=== PATIENT | female | born 1965 | race Caucasian/White ===

== ENCOUNTER 2018-05-16 02:23 | Outpatient (CLI) | payer OTHER, SELFPAY ==
--- NOTE | 2018-06-07 18:41 | ZIOP_ITS ---
ZIO PATCH REPORT DATE OF READING: June 07, 2018 STUDY INDICATION: Palpitations. REQUESTING PROVIDER: Zuly Shore M.D. FINDINGS: The patient was monitored for 13 days and 1 hour. The predominant underlying rhythm was sinus rhythm. Average heart rate in sinus rhythm 73 beats per minute, range of 46-152 beats per minute. There was rare ectopy. There were four atrial runs, average heart rate 129 beats per minute, range 58-176 beats per minute. The longest episode lasted 18 beats with an average heart rate of 96 beats per minute. There were no pauses greater than 3 seconds. There was no high-degree heart block. There were 22 patient events. Five events correlated with PACs. One event correlated with PVCs. One episode correlated with a 7-beat atrial run with an average heart rate of 150 beats per minute. FINAL INTERPRETATION: Bursts of atrial tachycardia, at times symptomatic.
== END 2018-05-16 02:43 ==
PROVIDERS: PCP Family Medicine; Visit Provider Internal Medicine Cardiovascular Disease
DX: R00.2 Palpitations (principal); I47.1 Supraventricular tachycardia
CPT/HCPCS: 93225

== ENCOUNTER 2018-06-16 01:22 | Outpatient (CLI) | payer OTHER, SELFPAY ==
--- NOTE | 2018-06-16 09:28 | DI.MAMMO_ITS ---
SYMPTOM/DIAGNOSIS: SCREENING, PT HAS IMPLANTS MAMMOGRAM: 06/16/18 Mammograms were interpreted according to the usual protocol including computer analysis with CAD system, tomosynthesis and C view imaging. The breasts are of moderate density. There are bilateral mammary implants. Routine views and implant displaced views were obtained. No mass or clumped microcalcification identified in either breast. The current examination is compared with previous examinations including 11/2016 and there has been no gross interval change in appearance in comparison with the previous studies. CONCLUSION: No specific evidence of malignancy at this time. Routine screening examinations are suggested at yearly intervals in this age group according to the ACS/ACR guidelines. Category 1, breast density category B. MQSA ASSESSMENT OF FINDINGS: Negative. Category 1. Patient will receive a letter notifying them of these results. BI-RADS category B. There are scattered areas of fibroglandular density.
== END 2018-06-16 01:42 ==
PROVIDERS: PCP Family Medicine; Visit Provider Obstetrics & Gynecology Gynecology
DX: Z12.31 Encounter for screening mammogram for malignant neoplasm of breast (principal); Z98.82 Breast implant status
CPT/HCPCS: 77063; 77067

== ENCOUNTER 2018-07-30 00:18 | Outpatient (CLI) | payer OTHER, SELFPAY ==
[2018-07-30 09:57] LABS: Abs Immature Grans 0.01 k/cumm (0.0-0.09); Absolute Basophil Count 0.03 k/cumm (0.0-0.2); Absolute Eosinophil Count 0.19 k/cumm (0.0-0.7); Absolute Lymphocyte Count 1.57 k/cumm (1.2-3.4); Absolute Monocyte Count 0.36 k/cumm (0.11-0.7); Absolute Neutrophil Count 2.65 k/cumm (1.2-6.7); Basophils % 0.6; HCT 38.9 % (36.0-46.0); HGB 12.9 g/dL (12.0-15.5); Immature Grans % 0.2; Lymphocytes % 32.6; Mean Corp. HGB Concentration 33.2 g/dL (32.0-36.0); Mean Corpuscular Hemoglobin 28.8 pg (27.0-33.0); Mean Corpuscular Volume 86.8 fL (80-95); Mean Platelet Volume 9.6 fL (8.0-11.0); Monocytes % 7.5; Neutrophils % 55.1; Platelet Count 269 x1000/uL (130-400); RBC 4.48 m/cumm (4.00-5.20); RBC Distribution Width 12.6 % (11.7-14.6); White Blood Cell Count 4.81 k/cumm (4.4-10.8)
[2018-07-30 11:38] LABS: Anion Gap 5.9 mmol/L (3-11); BUN 22 mg/dL (7-18); CO2 30.1 mmol/L (21.0-32.0); CREATININE 0.78 mg/dL (0.55-1.02); Calcium 9.3 mg/dL (8.5-10.1); Chloride 105 mmol/L (98-107); Cholesterol 227 mg/dL (50-200); Glucose 91 mg/dL (70-100); HDL Cholesterol 61 mg/dL (40-60); LDL CHOLESTEROL 149 mg/dL (<100); Potassium 4.2 mmol/L (3.5-5.1); Sodium 141 mmol/L (136-145); TSH (W/Ref FT4) 2.63 uIU/mL (0.358-3.74); Triglyceride 61 mg/dL (30-150); Vitamin B12 743 pg/mL (193-986)
[2018-07-30 11:40] LABS: Folate > 20.0 ng/mL (8.6-20.0)
== END 2018-07-30 00:38 ==
PROVIDERS: PCP Family Medicine; Visit Provider Family Medicine
DX: E53.8 Deficiency of other specified B group vitamins (principal); I10 Essential (primary) hypertension; Z00.00 Encounter for general adult medical examination without abnormal findings; R94.6 Abnormal results of thyroid function studies
CPT/HCPCS: 36415; 80048; 80061; 83721; 82607; 82746; 84443; 85025

== ENCOUNTER 2018-10-06 00:09 | Outpatient (CLI) | payer OTHER, SELFPAY ==
--- NOTE | 2018-10-06 08:30 | ETT_ITS ---
*[facility]* *[facility]* [address] [place] [address] Stress Electrocardiography Sheldon protocol Date of study: 10/06/2018 *PATIENT PRESENTATION* Height: 160cm (63in) Blood Pressure: Weight: 65kg (143lb) BSA: 1.71m^2 Referring physician: Jason Simmons Ordering physician: Jason Simmons Impressions: Borderline study, very transient ST depressions without angina, but concomitant nausea. Summary: 1. Stress ECG conclusions: The stress ECG is borderline. The sensitivity of this test is limited by significant motion artifact. Maximal ST change occurred during the exercise phase. Stress ECG change: Transient horizontal depression starting at 6min exercise, onset of nausea around 9min, horizontal ST depression resolving with higher level of exercise around 10min exercise. Severity: 1.0-1.5mm. 2. Stress: The target heart rate was achieved. There is a normal resting blood pressure with an appropriate response to stress. The patient experienced no chest pain during stress. Exercise capacity is above normal for age. Recommendations: Cardiology consult. Indication: R00.2. History: REASON FOR TESTING: PATIENT HAS HAD PALPITATIONS FOR MANY YEARS, BUT OVER THE LAST YEAR THE PALPITATIONS HAVE BECOME MORE FREQUENT. SHE REPORTS GETTING A FLUTTERING LEFT SIDED CHEST SENSATION AN AVERAGE OF 5 TIMES PER DAY; THESE EPISODES LAST ANYWHERE FROM TWO SECONDS TO 1 MINUTE. SHE STATES SHE RARELY GETS LIGHTHEADEDNESS. SHE DENIES PALPITATIONS UPON ARRIVAL TO TESTING TODAY. SIGNIFICANT PAST MEDICAL HISTORY: PALPITATIONS. SMOKING STATUS: NEVER. EXERCISE ROUTINE: ELLIPTICAL 4-5 TIMES PER WEEK FOR 30 MINUTES, AND DAILY ADL'S. Risk factors: Family history of coronary artery disease. Hypertension. Dyslipidemia. Cholesterol: 227mg/dl. HDL: 61mg/dl. LDL: 149mg/dl. Triglycerides: 61mg/dl. ALLERGIES: AMITRIPTYLINE, CLONAZEPAM, SULFA, STEROIDS. MEDICATIONS: VITAMIN D 1000 UNITS DAILY, PEDIATRIC MULTIVITAMIN DAILY, CHINO C 500 MG DAILY, OMEPRAZOLE 20 MG DAILY, ATENOLOL 50 MG DAILY. Protocol: Sheldon protocol. Baseline ECG: SINUS BRADYCARDIA. HR 57 BPM. Stress protocol: + +---+ + !Stage !HR !BP (mmHg) ! + +---+ + !Baseline supine !57 !140/90 (107)! + +---+ + !Baseline standing !62 !138/88 (105)! + +---+ + !Stage I; 1.7mph, 10degrees; 3 min !98 !140/80 (100)! + +---+ + !Stage II; 2.5mph, 12degrees; 3 min !99 !140/80 (100)! + +---+ + !Stage III; 3.4mph, 14degrees; 3 min!143!170/80 (110)! + +---+ + !Recovery; 1 min !110!190/78 (115)! + +---+ + !Recovery; 3 min !87 !126/76 (93) ! + +---+ + !Recovery; 6 min !83 !120/76 (91) ! + +---+ + !Recovery; 12 min !81 !112/70 (84) ! + +---+ + * Stress results: STRESS TEST ENDED IN 11 MINUTES 5 SECONDS DUE TO NAUSEA. NAUSEA SUBSIDED BY 3 MINUTE RECOVERY PERIOD. NORMAL HEART RATE AND BLOOD PRESSURE RESPONSE TO EXERCISE. MAX HEART RATE: 154 91 % OF TARGET HEART RATE ACHIEVED. MET'S: 13.[address] NO ANGINA. [address] SEGMENT DEPRESSIONS IN V3, V4, V5, V6 AT 6 MINUTES [address] SEGMENTS IN V3, V4, V5, VS RETURN TO BASELINE UPON IMMEDIATE RECOVERY. ABOVE AVERAGE FUNCTIONAL CAPACITY. Maximal heart rate during stress was 154bpm (92% of maximal predicted heart rate). The maximal predicted heart rate was 168bpm. The target heart rate was achieved. There is a normal resting blood pressure with an appropriate response to stress. The rate-pressure product for the peak heart rate and blood pressure was 14960pq Hg/min. The patient experienced no chest pain during stress. Exercise capacity is above normal for age. Stress ECG: The stress ECG is borderline. The sensitivity of this test is limited by significant motion artifact. Maximal ST change occurred during the exercise phase. Stress ECG change: Transient horizontal depression starting at 6min exercise, onset of nausea around 9min, horizontal ST depression resolving with higher level of exercise around 10min exercise. Severity: 1.0-1.5mm. In lead groups: V3, V4, V5 and V6. Study data: Zuly Shore MD supervised and was readily available during the procedure. This study was interpreted by [facility]. Study status: Routine. Consent: The risks, benefits, and alternatives to the procedure were explained to the patient and informed consent was obtained. Procedure: Initial setup. A baseline ECG was recorded. Surface ECG leads and manual cuff blood pressure measurements were monitored. Heart sounds: Normal. Lung sounds: Normal. Treadmill exercise testing was performed using the Sheldon protocol. Study completion: The patient tolerated the procedure well and was discharged from the lab. Discharge: The patient left the laboratory in stable condition. Birthdate: Patient birthdate: 1965. Sex: Gender: female. Study date: Study date: 10/06/2018. Study time: 00:01 AM. Signature Documentation: The Stress ECG portion of this study was interpreted by Zuly Shore MD. Electronically signed by Zuly Shore 10/06/2018 16:37
== END 2018-10-06 00:29 ==
PROVIDERS: PCP Family Medicine; Visit Provider Internal Medicine Cardiovascular Disease
DX: R00.2 Palpitations (principal); R07.89 Other chest pain; R06.9 Unspecified abnormalities of breathing; I47.1 Supraventricular tachycardia; I10 Essential (primary) hypertension; E78.5 Hyperlipidemia, unspecified; R94.30 Abnormal result of cardiovascular function study, unspecified
CPT/HCPCS: 93017

== ENCOUNTER 2019-01-26 00:06 | Outpatient (CLI) | payer OTHER, SELFPAY ==
--- NOTE | 2019-01-26 08:15 | MERGEMPI_ITS ---
*[facility]* *[facility]* [address] [place] [address] Myocardial Perfusion Imaging - SPECT Sheldon protocol Date of study: 01/26/2019 *PATIENT PRESENTATION* Height: 160cm (63in) Blood Pressure: Weight: 63.6kg (140lb) BSA: 1.69m^2 Referring physician: Mikal Gonzalez Ordering physician: Ruben Gerard Impressions: Normal study after maximal exercise. Summary: 1. Myocardial perfusion imaging: No myocardial perfusion defects noted. 2. The calculated left ventricular ejection fraction after stress: 59%. LV global systolic function is normal. No left ventricular regional motion abnormality. 3. Stress ECG conclusions: The stress ECG is negative. Del Real treadmill score: 8. This score predicts a low risk of cardiac events. 4. Stress: The target heart rate was achieved. There is a normal resting blood pressure with an appropriate response to stress. The patient experienced no chest pain during stress. Exercise capacity is average for age. 5. Treadmill exercise testing was performed using the Sheldon protocol. The patient exercised for 8 min 8 sec, to protocol stage 3, to a maximal work rate of 10.2mets. Exercise was terminated due to achievement of target heart rate. Indication: R00.2. History: REASON FOR TESTING: PATIENT REPORTS INCREASED FREQUENCY OF PALPITATIONS, A FLUTTERING SENSATION TO THE LEFT CHEST. ETT DONE 10/06/18 WAS BODERLINE, LIMITED BY MOTION ARTIFACT. SEE REPORT. PMH: PALPITATIONS, HYPERLIPIDEMIA, HYPERTENSION, PAROXYSMAL ATRIAL TACHYCARDIA, IBS, GASTRITIS, DYSPEPSIA, LOW BACK PAIN, RHEUMATOID FACTOR POSITIVE, DUB, FATIGUE, FIBROMYALGIA, MITRAL VALVE PROLAPSE, MAJOR DEPRESSIVE DISORDER, PRESYNCOPE. FAMILY HX: CAD, HYPERTENSION. SMOKING: NEVER SMOKER. 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 Risk factors: Family history of coronary artery disease. Hypertension. Dyslipidemia. Cholesterol: 227mg/dl. HDL: 61mg/dl. LDL: 149mg/dl. Triglycerides: 61mg/dl. ALLERGIES:SULFA, AMITRIPTYLINE, STEROIDS,CLONOPIN. MEDICATIONS: PEDIATRIC MULTIVITAMIN 1 DAILY, OMEPRAZOLE 20 MG DAILY, ATENOLOL 25 MG DAILY, CHINO-C 500 MG DAILY, VIT D3 1000 UNITS DAILY, TUMERIC/CURCUMIN 1 DAILY. Imaging Technique: Protocol: Sheldon protocol. Acquisition: Gated SPECT; 1 day - rest/stress. The patient was imaged in the supine position. Attenuation correction used. Isotope administration: - Rest. Tc[99m]-sestamibi. Dose: 10.3mCi. Injection time: 08:15 AM. Injection to stress time: 00:45. - Stress. Tc[99m]-sestamibi. Dose: 31mCi. Injection time: 10:55 AM. 1-2 min before end of exercise Baseline ECG: LAST EKG 05/23/2013- SINUS RHYTHM, SHORT GA SYNDROME. TODAY'S EKG- SINUS RHYTHM, HR 74. Normal ECG. Stress protocol: + +---+ +---+ !Stage !HR !BP (mmHg) !Sat! + +---+ +---+ !Baseline supine !74 !136/80 (99) !---! + +---+ +---+ !Baseline standing !85 !140/82 (101)!99%! + +---+ +---+ !Stage I; 1.7mph, 10degrees; 3 min !122!160/78 (105)!---! + +---+ +---+ !Stage II; 2.5mph, 12degrees; 3 min!148!168/90 (116)!99%! + +---+ +---+ !Recovery; 1 min !169!170/68 (102)!---! + +---+ +---+ !Recovery; 3 min !86 !150/70 (97) !---! + +---+ +---+ !Recovery; 6 min !80 !136/80 (99) !---! + +---+ +---+ * Stress results: Maximal heart rate during stress was 169bpm (101% of maximal predicted heart rate). The maximal predicted heart rate was 168bpm. The target heart rate was achieved. There is a normal resting blood pressure with an appropriate response to stress. The rate-pressure product for the peak heart rate and blood pressure was 05062bp Hg/min. The patient experienced no chest pain during stress. Exercise capacity is average for age. Stress ECG: EXCERCISE TESTING ENDED IN 8 MINS, 08 SECS. MAX HR WAS 169, 100% OF TARGET. HYPERTENSIVE BLOOD PRESSURE RESPONSE. METS: 10.16. ECTOPY: NONE SEEN. ANGINA: NO REPORTED CHEST PAIN, PRESSURE OR PALPITATIONS REPORTED. ISCHEMIA: NO ISCHEMIC CHANGES NOTED. FUNCTIONAL CAPACITY: AVERAGE CAPACITY. The stress ECG is negative. Del Real treadmill score: 8. This score predicts a low risk of cardiac events. Myocardial perfusion: Imaging information: gated. The image quality was good. Image quality reduced due to subdiaphragmatic activity. Left ventricular size is normal. No myocardial perfusion defects noted. Ventricular Function (Wall Motion): The calculated left ventricular ejection fraction after stress: 59%. LV global systolic function is normal. No left ventricular regional motion abnormality. Study data: Mikal Gonzalez MD supervised and was readily available during the procedure. This study was interpreted by [facility]. Study status: Routine. Consent: The risks, benefits, and alternatives to the procedure were explained to the patient and informed consent was obtained. Procedure: Initial setup. A baseline ECG was recorded. Surface ECG leads and manual cuff blood pressure measurements were monitored. Heart sounds: Normal. Lung sounds: Normal. Treadmill exercise testing was performed using the Sheldon protocol. The patient exercised for 8 min 8 sec, to protocol stage 3, to a maximal work rate of 10.2mets. Exercise was terminated due to achievement of target heart rate. Study completion: All catheters inserted during the procedure were removed. The patient tolerated the procedure well and was discharged from the lab. Discharge: The patient left the laboratory in stable condition. Birthdate: Patient birthdate: 1965. Sex: Gender: female. Study date: Study date: 01/26/2019. Study time: 00:01 AM. Signature Documentation: - The imaging portion of this study was interpreted by Nuclear Anesthesia Director Mikal Gonzalez MD. - The Stress ECG portion of this study was interpreted by Mikal Gonzalez MD. Electronically signed by Mikal Gonzalez 01/26/2019 12:49
== END 2019-01-26 00:26 ==
PROVIDERS: PCP Family Medicine; Visit Provider Family Medicine
DX: R00.2 Palpitations (principal); R94.30 Abnormal result of cardiovascular function study, unspecified; I10 Essential (primary) hypertension; I47.1 Supraventricular tachycardia; E78.5 Hyperlipidemia, unspecified; Z82.49 Family history of ischemic heart disease and other diseases of the circulatory system
CPT/HCPCS: 78452; 93017

== ENCOUNTER 2019-05-24 11:29 | Outpatient (CLI) | payer OTHER, SELFPAY ==
--- NOTE | 2019-05-24 11:24 | DI.RAD_ITS ---
EXAM: XR HIP RT COMPLETE AP PELVIS CLINICAL HISTORY: HIP PAIN TECHNIQUE: The study was performed according to the usual protocol. COMPARISON: BILATERAL HIPS ADULT from 10/30/2009 LUMBAR SPINE COMPLETE from 04/17/2010 FINDINGS: Two views were obtained. There is sclerotic focus in the right iliac measuring about 11 millimeters in diameter which lies superior to the acetabulum. This was not present on prior examination of 2009 . This may represent a bone island but the possibility of a sclerotic metastatic lesion is not exclu ded. There is slight narrowing of the cartilaginous joint spaces of both hips superiorly. Mild subchondra l sclerosis of the acetabula noted bilaterally. Mild acetabular spurring noted bilaterally. IMPRESSION: Mild DJD of both hips. Sclerotic radiodensity which appears to lie in the right iliac bone may repres ent bone island but was not present on the previous examination and neoplastic lesion is not excluded . MR examination of the pelvis is suggested for further evaluation to include pre and post contrast i maging.
== END 2019-05-24 11:49 ==
PROVIDERS: PCP Family Medicine; Visit Provider Student in an Organized Health Care Education/Training Program
DX: M25.551 Pain in right hip (principal); M16.0 Bilateral primary osteoarthritis of hip; M89.8X8 Other specified disorders of bone, other site
CPT/HCPCS: 73502

== ENCOUNTER 2019-08-11 07:40 | Outpatient (CLI) | payer OTHER, SELFPAY ==
--- NOTE | 2019-09-04 09:23 | ZIOP_ITS ---
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 Predominant rhythm was sinus. Average heart rate was 68 bpm. Minimum heart rate was 45 and maximum 149 There were very rare ventricular ectopic beats There were very rare premature atrial contractions. There were 8 runs of premature atrial contractions, the longest was 6 beats. Patient symptoms correlated to both sinus rhythm and atrial runs
== END 2019-08-11 08:00 ==
PROVIDERS: PCP Family Medicine; Visit Provider Internal Medicine Cardiovascular Disease
DX: R00.2 Palpitations (principal); I49.3 Ventricular premature depolarization
CPT/HCPCS: 0296T

== ENCOUNTER 2019-10-05 00:31 | Outpatient (CLI) | payer OTHER, SELFPAY ==
--- NOTE | 2019-10-05 14:20 | DI.MAMMO_ITS ---
EXAM: MG MAMMO SCREENING 60 MIN DUR CLINICAL HISTORY: BREAST CANCER SCREENING, Z12.39, PT HAS IMPLANTS TECHNIQUE: Mammograms were interpreted according to the usual protocol including computer analysis w Yap CAD system, tomosynthesis and C-view imaging. COMPARISON: Previous examination May 2018 FINDINGS: Breasts are of moderate density and contain implants. Routine views and implant-displaced views were obtained. No mass or clumped microcalcification identified in either breast. No gross interval william nge in appearance in comparison with previous examination May 2018. IMPRESSION: No specific evidence of malignancy at this time. Routine screening examinations are suggested at yea rly intervals in this age group according to the ACS/ACR guidelines. Category 1, breast density susan Briggs
== END 2019-10-05 00:51 ==
PROVIDERS: PCP Family Medicine; Visit Provider Obstetrics & Gynecology Gynecology
DX: Z12.31 Encounter for screening mammogram for malignant neoplasm of breast (principal); Z98.82 Breast implant status
CPT/HCPCS: 77063; 77067

== ENCOUNTER 2020-02-22 02:20 | Outpatient (CLI) | payer OTHER, SELFPAY ==
[2020-02-22 08:36] LABS: Calculated LDL 176 mg/dL (<100); Cholesterol 248 mg/dL (<200); HDL Cholesterol 54 mg/dL (40-60); Triglyceride 92 mg/dL (<150)
== END 2020-02-22 02:40 ==
PROVIDERS: PCP Family Medicine; Visit Provider Physician Assistant
DX: Z13.220 Encounter for screening for lipoid disorders (principal)
CPT/HCPCS: 36415; 80061

== ENCOUNTER 2020-03-29 03:53 | Outpatient (REF) | payer OTHER, SELFPAY ==
[2020-03-31 23:06] LABS: Patient Race White; SARS-CoV-2 RNA Undetected (Undetected); SARS-CoV-2 Specimen Source Nasal
== END 2020-03-29 04:13 ==
LOC: LBO 03:53
PROVIDERS: PCP Family Medicine; Visit Provider Nurse Practitioner Family
DX: Z11.59 Encounter for screening for other viral diseases (principal)
CPT/HCPCS: U0003

== ENCOUNTER 2020-05-16 11:01 | Outpatient (CLI) | payer OTHER, SELFPAY ==
--- NOTE | 2020-05-16 14:59 | DI.RAD_ITS ---
EXAM: XR KNEE LT 3V AP,LAT,AKASH CLINICAL HISTORY: s/p fall 05/03/20 - full weight on left knee, pain,m25.562 TECHNIQUE: COMPARISON: No exams were available for comparison FINDINGS: Three views were obtained. No bony abnormality is seen. Cartilaginous joint spaces appear fairly we ll maintained. No knee joint effusion seen. IMPRESSION: Negative examination of the knee. RADIATION DOSE DELIVERED: Total DLP
== END 2020-05-16 11:21 ==
PROVIDERS: PCP Family Medicine; Visit Provider Nurse Practitioner Family
DX: M25.562 Pain in left knee (principal)
CPT/HCPCS: 73562

== ENCOUNTER 2020-07-02 09:07 | Outpatient (CLI) | payer OTHER, SELFPAY ==
--- NOTE | 2020-07-02 09:00 | DI.RAD_ITS ---
EXAM: XR KNEE RT 3V AP,LAT,AKASH CLINICAL HISTORY: RIGHT KNEE PAIN. TECHNIQUE: 2D digital imaging was performed. COMPARISON: CR XR KNEE LT 3V AP,LAT,AKASH from 05/16/2020 FINDINGS: BONES: No acute fracture is present. No bony destructive lesion is seen. There is a tiny enthesophyte at the anterior superior aspect of the patella. JOINTS: The knee is normally aligned. No joint effusion is seen. There is normal alignment of the pat mary carmen. SOFT TISSUE: Normal. IMPRESSION: Unremarkable radiographs of the right knee. DATA REPOSITORY: RADIATION DOSE DELIVERED:
== END 2020-07-02 09:27 ==
PROVIDERS: PCP Family Medicine; Visit Provider Student in an Organized Health Care Education/Training Program
DX: M25.561 Pain in right knee (principal)
CPT/HCPCS: 73562

== ENCOUNTER 2020-09-10 01:21 | Outpatient (CLI) | payer OTHER, SELFPAY ==
--- NOTE | 2020-09-10 12:45 | DI.RAD_ITS ---
EXAM: XR ARTHRITIS SERIES CLINICAL HISTORY: Painful DIPs of fingers bilaterally,ARTHRALGIA, M25.50 TECHNIQUE: 2D digital imaging was performed. COMPARISON: CR none FINDINGS: There is a fracture of the tuft of the 5th finger of the left hand. No additional fractures are see n. There is mild spurring from distal interphalangeal joints of the 2nd and 3rd fingers of the right hand. Minimal spurring is seen of the interphalangeal joints of the left hand. No bony erosions ar e seen. The bones are normally mineralized. IMPRESSION: Mild degenerative changes of the interphalangeal joints, greater distally in the right hand. Fractur e of indeterminate age of the tuft of the 5th finger of the left hand.
== END 2020-09-10 01:22 ==
LOC: DI 01:22
PROVIDERS: PCP Nurse Practitioner Family; Visit Provider Nurse Practitioner Family
DX: M25.541 Pain in joints of right hand (principal); M25.542 Pain in joints of left hand; M19.041 Primary osteoarthritis, right hand; M19.042 Primary osteoarthritis, left hand
CPT/HCPCS: 73120

== ENCOUNTER 2020-09-18 01:08 | Outpatient (CLI) | payer OTHER, SELFPAY ==
--- NOTE | 2020-09-18 06:45 | DI.MRI_ITS ---
EXAM: MR LOWER JOINT LT WO CLINICAL HISTORY: Failed nonop,INTERNAL DERANGEMENT,LT KNEE PAIN,M23.92. TECHNIQUE: Multiplanar multisequence MRI was performed. COMPARISON: No exams were available for comparison FINDINGS: BONES: There is no fracture or contusion pattern. JOINTS: There is a focus of hyperintense signal in the articular cartilage overlying the lateral sanchez llar facet the underlying bone shows normal marrow signal. No effusion is present. TENDONS: Extensor mechanism: Unremarkable. Medial retinaculum: Unremarkable. Lateral retinaculum: Unremarkable. Popliteus: Unremarkable. MUSCLES: Unremarkable. MENISCI: There is degenerative signal seen in the medial meniscus but no evidence of a nara tear. T he lateral meniscus is unremarkable. SOFT TISSUES: Unremarkable. LIGAMENTS: Anterior Cruciate: Unremarkable. Posterior Cruciate: Unremarkable. Medial Collateral:There is a mild amount of fluid around the medial collateral ligament which may rep resent a mild sprain. Lateral Collateral: Unremarkable. OTHER: IMPRESSION: 1. No evidence of a meniscal or ligament tear. 2. Findings suggestive of a mild sprain of the MCL. 3. Degenerative signal seen in the medial meniscus without evidence of a nara tear. 4. Chondromalacia of the lateral patellar facet. DATA REPOSITORY:
== END 2020-09-18 01:28 ==
PROVIDERS: PCP Nurse Practitioner Family; Visit Provider Student in an Organized Health Care Education/Training Program
DX: M23.92 Unspecified internal derangement of left knee (principal); M22.42 Chondromalacia patellae, left knee
CPT/HCPCS: 73721

== ENCOUNTER 2020-09-27 02:18 | Outpatient (CLI) | payer OTHER, SELFPAY ==
[2020-09-27 07:22] LABS: Abs Immature Grans 0.01 10^3/uL (0.0-0.06); Absolute Basophil Count 0.06 10^3/uL (0.0-0.2); Absolute Eosinophil Count 0.12 10^3/uL (0.0-0.7); Absolute Lymphocyte Count 1.53 10^3/uL (1.2-3.4); Absolute Monocyte Count 0.34 10^3/uL (0.1-0.8); Absolute Neutrophil Count 1.88 10^3/uL (1.2-6.7); Basophils % 1.5; HCT 38.7 % (36.0-46.0); HGB 12.8 g/dL (11.2-15.7); Immature Grans % 0.3; Lymphocytes % 38.8; MCH 28.6 pg (27.0-33.0); MCHC 33.1 % (32.0-36.0); MCV 86.4 fL (80-95); MPV 10.2 fL (8.0-11.0); Monocytes % 8.6; Neutrophils % 47.8; Nucleated RBC 0 %; Platelet Count 259 10^3/uL (130-400); RBC 4.48 10^6/uL (3.93-5.22); RDW 12.1 % (11.7-14.6); RDW-SD 38.5 fL; WBC 3.94 10^3/uL (4.4-10.8)
[2020-09-27 07:30] LABS: Hemoglobin A1C 5.5 % (<5.7)
[2020-09-27 08:15] LABS: ALT 39 U/L (14-59); AST 22 U/L (15-37); Albumin 4.2 g/dL (3.4-5.0); Alkaline Phosphatase 78 U/L (46-116); Anion Gap 7.3 mmol/L (3-11); BUN 27 mg/dL (7-18); Bilirubin, Total 0.5 mg/dL (0.2-1.0); CO2 29.7 mmol/L (21.0-32.0); CREATININE 0.9 mg/dL (0.55-1.02); Calcium 9.4 mg/dL (8.5-10.1); Calculated LDL 154 mg/dL (<100); Chloride 105 mmol/L (98-107); Cholesterol 235 mg/dL (<200); Glucose 98 mg/dL (74-106); HDL Cholesterol 66 mg/dL (40-60); Potassium 4.1 mmol/L (3.5-5.1); Sodium 142 mmol/L (136-145); TSH (W/Ref FT4) 2.58 uIU/mL (0.36-3.74); Total Protein 7.2 g/dL (6.4-8.2); Triglyceride 75 mg/dL (<150)
[2020-09-27 08:41] LABS: C-Reactive Protein < 0.05 mg/dL (0.0-0.3)
[2020-09-27 16:20] LABS: ESR 3 mm/hr (<or=30)
[2020-09-27 17:08] LABS: Rheumatoid Factor 32.9 IU/mL (<12.0)
[2020-09-30 05:13] LABS: Vitamin D 25 Total 43.2 ng/ml (30-100)
[2020-09-30 13:52] LABS: Lyme Ab w Rflx to Lyme Confirm Negative (Negative)
[2020-09-30 15:29] LABS: ANA Interpretation Positive (Negative); ANA Titer Pattern 1:80 Speckled
== END 2020-09-27 02:19 | disposition home or self-care (01) ==
LOC: LBO 02:18
PROVIDERS: PCP Nurse Practitioner Family; Visit Provider Nurse Practitioner Family
DX: M25.59 Pain in other specified joint (principal); M79.18 Myalgia, other site; Z00.00 Encounter for general adult medical examination without abnormal findings; I10 Essential (primary) hypertension; F41.8 Other specified anxiety disorders; R00.2 Palpitations
CPT/HCPCS: 36415; 80053; 80061; 82306; 85652; 83036; 84443; 85025; 86038; 86140; 86431; 86618

== ENCOUNTER 2020-10-10 01:56 | Outpatient (CLI) | payer OTHER, SELFPAY ==
--- NOTE | 2020-10-10 10:45 | DI.MAMMO_ITS ---
EXAM: MG MAMMO SCREENING 60 MIN DUR CLINICAL HISTORY: breast cancer screening,IMPLANTS, Z12.39. TECHNIQUE: Bilateral full field digital CC and MLO mammographic images were obtained with 3D tomosyn thesis and utilizing computer aided detection (CAD). Performed conventional and implant displacement views. COMPARISON: Prior mammograms dating back to 2010, the most recent being September 2019. FINDINGS: Implants are retropectora retropectoral. There are no new spiculated masses nor malignant appearing microcalcification groups. There is no significant architectural distortion nor skin thickening-retraction. IMPRESSION: Intact bilateral retropectoral implants. No radiographic evidence of malignancy. BI-RADS Category 1 - Negative Breast Density - Category B - Scattered areas of fibroglandular density Breast density Category C or D implies that the patient has dense breast tissue. Dense breast tissue can make it harder to find cancer on a mammogram. Dense breast tissue is also associated with an incr eased risk of breast cancer. This information about the result of the mammogram report was provided to the patient to raise their awareness. Use this report when you speak with the patient about their risks for breast cancer, which includes their family history. At that time, you may recommend additional screening tests (Ultrasoun d or MRI) as these tests may add significant information. A negative radiographic report should not delay biopsy if a dominant or clinically suspicious mass is present. Up to ten percent of cancers are not identified on mammography. A negative report may reinforce clinical impression. Adenosis and dense breasts may obscure an underlying neoplasm. False positive reports average 6 to 10%. Patient will receive a letter notifying them of these results.
== END 2020-10-10 02:16 ==
PROVIDERS: PCP Nurse Practitioner Family; Visit Provider Nurse Practitioner Family
DX: Z12.31 Encounter for screening mammogram for malignant neoplasm of breast (principal); Z98.82 Breast implant status
CPT/HCPCS: 77063; 77067

== ENCOUNTER 2020-11-26 15:22 | Outpatient (CLI) | payer OTHER, SELFPAY ==
--- NOTE | 2020-11-26 15:00 | DI.RAD_ITS ---
Exam(s) XR KNEE RT 3V AP,LAT,AKASH XR KNEE LT 2V AP,LAT XR KNEE LT 1V EXAM: XR KNEE LT 2V AP,LAT CLINICAL HISTORY: f/u TECHNIQUE: COMPARISON: CR XR KNEE RT 3V AP,LAT,AKASH from 07/02/2020 CR XR KNEE RT 3V AP,LAT,AKASH from 11/26/2020 FINDINGS: Bilateral Merchant views and AP and lateral views of each knee were obtained. Merchant view show nor rick aligned patellas. Cartilaginous joint spaces are well maintained bilaterally. No knee fusion on either side. No bony abnormality seen. IMPRESSION: Negative examination of both knees. RADIATION DOSE DELIVERED: Total DLP
== END 2020-11-26 15:23 | disposition home or self-care (01) ==
PROVIDERS: PCP Nurse Practitioner Family; Referring Provider Nurse Practitioner Family; Visit Provider Student in an Organized Health Care Education/Training Program
DX: M25.561 Pain in right knee (principal); M25.562 Pain in left knee
CPT/HCPCS: 73562; 73560

== ENCOUNTER 2021-03-21 11:12 | Outpatient (CLI) | payer OTHER, SELFPAY ==
[2021-03-21 17:24] LABS: C-Reactive Protein 0.05 mg/dL (0.0-0.3); TSH 1.84 uIU/mL (0.36-3.74)
[2021-03-24 09:24] LABS: Hepatitis C Ab w Rflx HCV PCR Negative (Negative)
[2021-03-24 09:36] LABS: Cyclic Citrullinated Peptide <2.5 U/mL (<5.0)
[2021-03-25 14:00] LABS: RNP Ab, IgG 3.3 Units (<20.0); SS-A Antibody 1.7 Units (<20.0); SS-B (La) Ab, IgG 1.3 Units (<20.0)
== END 2021-03-21 11:13 | disposition home or self-care (01) ==
LOC: LBO 11:15
PROVIDERS: PCP Nurse Practitioner Family; Visit Provider Internal Medicine Rheumatology
DX: M25.541 Pain in joints of right hand (principal); M25.542 Pain in joints of left hand; M79.671 Pain in right foot; M79.672 Pain in left foot; R53.81 Other malaise; R53.83 Other fatigue; M35.00 Sjogren syndrome, unspecified; Z11.59 Encounter for screening for other viral diseases
CPT/HCPCS: 36415; 86200; 86803; 84443; 86140; 86235

== ENCOUNTER 2021-04-02 01:44 | Outpatient (CLI) | payer OTHER, SELFPAY ==
--- NOTE | 2021-04-02 13:49 | DI.US_ITS ---
APPROVED REPORT EXAM: Comprehensive 2D, Doppler, and color-flow Echocardiogram Patient Location: Out-Patient Lacing Operator: Sussy Koenig RDCS (AE) Indications: Papitations Other Information Study Quality: Fair. Technically limited study due to body habitus. Conclusion Normal left ventricular wall thickness and chamber size. Estimated ejection fraction is 60%. There are no segmental wall motion abnormalities Normal right ventricular size and systolic function Both atria are normal in size There is no significant valvular disease Wall motion Left Ventricle The left ventricle is normal size. The left ventricular systolic function is normal. The left ventric ular ejection fraction is within the normal range. There is normal left ventricular wall thickness. T here is normal LV segmental wall motion. There is no ventricular septal defect visualized. LVEF is 60 %. Right Ventricle The right ventricle is normal size. The right ventricular systolic function is normal. The RVSP is 18 .3mmHg. Atria The left atrium size is normal. The right atrium size is normal. The interatrial septum is intact wit h no evidence for an atrial septal defect. Aortic Valve The aortic valve is normal in structure. There is no aortic valvular stenosis. No aortic regurgitatio n is present. Mitral Valve The mitral valve is normal in structure. No evidence of mitral valve stenosis. Mild mitral regurgitat ion. Bioprosthetic mitral valve appears normal. Tricuspid Valve The tricuspid valve is normal in structure. There is no tricuspid valve stenosis. Trace tricuspid reg urgitation. Pulmonic Valve The pulmonary valve is normal in structure. There is no pulmonic valvular stenosis. There is no pulmo priscila valvular regurgitation. Great Vessels The aortic root is normal in size. The ascending aorta is normal in size. Aortic arch is normal in ca liber. IVC is normal in size and collapses >50% with inspiration. Pericardium There is no pericardial effusion. 2D Dimensions IVSD d PLAX 0.91 cm F: 0.6-1.0 LV Vol A2C d MOD 94.2 mL LVPW d PLAX 0.92 cm F: 0.6 - 1.0 LV Vol A4C d MOD 96.6 mL LVID d PLAX 4.21 cm F: 3.8 - 5.2 LV EF A4C MOD 57.8 % LVDs 3.00 cm F: 2.2 - 3.5 LV EF A2C MOD 57.0 % Ao Root d 2.88 cm F: 2.7 - 3.3 LV EF Biplane MOD 56.3 % Ao Asc Diam d 3.13 cm F: 2.3 - 3.1 SV 54.70 mL LV EF Teichholz 54.9 % SV Index 33.75 mL/m2 LVEF (Samano's) 56.27 % F: 54 - 74 LV Volume 78.59 mL F: 46 - 106 LV Volume Index 48.51 mL/m2 F: 29 - 61 LV Vol Biplane MOD 97.2 mL FS 28.20 % LV Diastology MV E' medial 0.123 (>0.07 m/s) E/A Ratio 1.3 LV E/e MED 4.15 (<14) MV E Vmax 0.51 (0.4-1.3 m/s) MV E' lateral 0.125 (>0.1 m/s) MV A Vmax 0.40 (0.4-1.3 m/s) LV E/e LAT 4.05 (<14) MV E/A Ratio 1.27 MV E/E' medial 4.15 MV E/E' lateral 4.09 Aortic Valve LVOT Area 2.73 cm2 AoV Area Vmax 1.64 cm2 LVOT Vmax 0.60 m/s AoV Area/ BSA (Vmax) 1.01 cm2/m2 LVOT Mean Javon. 0.40 m/s SHOAIB Mean Javon. 1.57 cm2 LVOT Peak Grad 1.4 mmHg SHOAIB Mean Javon. Index 0.97 cm2/m2 LVOT Mean Grad 0.7 mmHg LVOT VTI 0.146 m LVOT Diam s 1.85 cm AoV Vmax 1.00 m/s Velocity Ratio 0.60 AoV Mean Javon. 0.69 m/s AoV Peak Grad 4.0 mmHg LVOT SV 39.77 mL AoV Mean Grad 2.1 mmHg AoV VTI 0.244 m AoV Area VTI 1.63 cm2 AoV Area/ BSA (VTI) 1.01 cm/m2 Mitral Valve MV DT 202 (160-240 msec) MV PHT 58 msec MV Area PHT 3.76 cm2 Pulmonary Valve PV Vmax 0.91 (0.5-1.5 m/s) RVOT Peak Gr. 1.70 mmHg PV Peak Grad 3.3 mmHg RVOT Mean Gr. 0.85 mmHg PV Mean Grad 1.8 mmHg RVOT VTI 0.149 m PV VTI 0.202 m RVOT Vmax 0.65 m/s Tricuspid Valve TR Peak Grad 15.2 mmHg TR Vmax 1.96 m/s RA Pressure 3.00 mmHg RVSP (TR) 18.3 mmHg
== END 2021-04-02 02:04 ==
PROVIDERS: PCP Nurse Practitioner Family; Visit Provider Internal Medicine Cardiovascular Disease
DX: R00.2 Palpitations (principal)
CPT/HCPCS: 93306

== ENCOUNTER 2021-05-08 11:45 | Outpatient (CLI) | payer OTHER, SELFPAY ==
--- NOTE | 2021-05-08 06:00 | DI.RAD_ITS ---
Exam(s) XR PAIN CLINIC FLUORO JOINT IN EXAM: XR PAIN CLINIC FLUORO JOINT IN CLINICAL HISTORY: Dx: Chronic knee pain TECHNIQUE: 2D and realtime digital imaging was performed. Radiologist not present. CONTRAST MATERIAL: None. COMPARISON: No exams were available for comparison FINDINGS: Fluoroscopy was provided for pain management therapy. Please refer to procedure report or details. Cumulative dose: Ka,r=not supplied mGy IMPRESSION: RADIATION DOSE DELIVERED:
[2021-05-08 11:53] VITALS: BP 133/87; PULSE 81; RESP 18; TEMP 36.5; O2SAT 98
[2021-05-08 12:26] VITALS: PULSE 69; O2SAT 100
--- NOTE | 2021-05-08 12:28 | PDOC.PAIN_ITS ---
Pain Clinic Procedure Note Procedure Note Procedure Note: LEFT GENICULAR NERVE BLOCK Date of Service: May 08, 2021 Patient: Siri Coleman Provider: Ruben Garcia DO, MPH Pre-operative diagnosis: Left Knee pain Post-operative diagnosis: Same Pre-procedure pain: VAS= 5/10 COMMENTS: She was previously evaluated in our clinic Siri Coleman has been referred to the [facility] for LEFT genicular nerve blocka. Siri was interviewed and the medical record reviewed. There were no medical, pharmacologic, radiographic or other structural contraindications to attempting fluoroscopically guided LEFT genicular nerve block. Risks and potential side effects as well as potential benefit of the procedure were reviewed with Siri , and HER voiced concerns were addressed. After I believed that the patient was completely informed, the printed consent form was signed. Standard time-out procedure was performed. Siri was placed in the supine position on the fluoroscopy table and automated blood pressure cuff and pulse oximeter applied. The skin entry points for approaching LEFT superolateral genicular nerve, the superomedial genicular nerve, the terminal branch of the nerve vastus intermedius and the inferomedial genicular was identified under the most advantageous fluoroscopic view and marked. Following thorough Chlorhexadine preparation of the skin and draping, 1% lidocaine infiltration of the skin entry point and subcutaneous tissues was accomplished using a 1.5 25G needle. Next, the 3.5 25G spinal needle was advanced to os at the location of the specific nerve root using fluoroscopic guidance. Next, 0.5 ml of 0.5% Bupivacaine was injected at each site. The needles were removed without difficulty. Siri's vital signs were stable throughout the procedure and were as recorded in the docflowsheet by the nursing staff. If given, dosages of intravenous drugs for anxiolysis and analgesia were documented in MAR. Follow up plans and appointments were discussed with the Siri . Post procedure instruction was given as documented in nursing documentation and having met discharge criteria, Siri was discharged from the [facility]. COMMENTS: No apparent complications. Post-procedure pain: VAS = 0/10. The patient will keep track of her LEFT knee pain over the next four hours. If Siri has sufficient pain relief, Siri will be a candidate for radiofrequency ablation at the same nerves. Young WJ1, Jodee SJ, Glen SumnerG, Isaiah SumnerG, Jayy FELIZ, Janki PH, Marcus JW. Radiofrequency treatment relieves chronic knee osteoarthritis pain: a double-blind randomized controlled trial. Pain. 2011 Sep;152(3):481-7. doi: 10.1016/j.pain.2010.09.029. Alexandrea S1, George ON2, Celeste Y3, ?zl?liss P2, Tonny U1, Keagan ?m?rl? I. Which one is more effective for the clinical treatment of chronic pain in knee osteoarthritis: radiofrequency neurotomy of the genicular nerves or intra- articular injection? Int J Rheum Dis. 2016 Feb 27. F/U with our office by phone to let us know the 1-4 post-procedure pain VAS scores I personally performed this entire procedure. Ruben Garcia DO, MPH Attending Physician [employer]BP[employer], Subspecialty board certification in Pain Management
[2021-05-08] MEDS: Omnipaque 240 MG/ML 50 ML BTL IJ (12:31)
[2021-05-08] MEDS: Bupivacaine 0.5% Pres-Free 10 ML VIAL IJ (12:31)
== END 2021-05-08 11:46 | disposition home or self-care (01) ==
LOC: PC 11:46
PROVIDERS: PCP Nurse Practitioner Family; Visit Provider Preventive Medicine Occupational Medicine
DX: M25.562 Pain in left knee (principal)
CPT/HCPCS: 64454; 77002; Q9967

== ENCOUNTER 2021-05-08 16:37 | Outpatient (REF) | payer OTHER, SELFPAY ==
--- NOTE | 2021-05-08 16:00 | PAPFT_PTH ---
PATIENT: Siri Coleman LOC: [facility] U#:[id number] AGE/SX: 56/F ROOM: RE05/08/[address]: Zoya Meadows : 1965 BED: DIS: 05/08/2021 SPEC #: [id number] RECD: 05/08/21 17:27 STATUS: RAFAEL LI #: [id number] GEOVANNA: 05/08/21 16:[address]: Zoya Meadows DEPT: [facility] Cytology RECD BY: Bobbi Langley ENTERED: 05/08/21 17:27 SP TYPE: PAPFT TARIK DR: Katya Graham, LAST PUTTER AWAY Tissues: 1 - CX/ENDOCX FOR PAP SMEARS Procedures: PAP THIN PREP/UVM Screening HPV DNA PROBE Comments: [id number]
== END 2021-05-08 16:38 | disposition home or self-care (01) ==
LOC: LBN 16:37
PROVIDERS: PCP Nurse Practitioner Family; Visit Provider Obstetrics & Gynecology Gynecology
DX: Z12.4 Encounter for screening for malignant neoplasm of cervix (principal); Z11.51 Encounter for screening for human papillomavirus (HPV)
CPT/HCPCS: 88142; 87624

== ENCOUNTER 2021-06-04 16:12 | Outpatient (CLI) | payer OTHER, SELFPAY ==
--- NOTE | 2021-06-04 15:14 | DI.RAD_ITS ---
Exam(s) XR KNEE LT 3V AP,LAT,AKASH EXAM: XR KNEE LT 3V AP,LAT,AKASH CLINICAL HISTORY: S/P fall. Acute on Chronic Pain M25.562 PAIN LT KNEE TECHNIQUE: COMPARISON: CR XR KNEE RT 3V AP,LAT,AKASH from 11/26/2020 FINDINGS: Three views were obtained. There is no evidence of acute fracture or dislocation. No significant kn ee joint effusion noted on the lateral view. IMPRESSION: RADIATION DOSE DELIVERED: Total DLP
== END 2021-06-04 16:32 ==
PROVIDERS: PCP Nurse Practitioner Family; Visit Provider Nurse Practitioner Family
DX: M25.562 Pain in left knee (principal); G89.29 Other chronic pain
CPT/HCPCS: 73562

== ENCOUNTER 2021-08-14 12:32 | Outpatient (CLI) | payer OTHER, SELFPAY ==
--- NOTE | 2021-08-14 06:00 | DI.RAD_ITS ---
Exam(s) XR PAIN CLINIC FLUORO JOINT IN EXAM: XR PAIN CLINIC FLUORO JOINT IN CLINICAL HISTORY: DX: Left anterior knee pain TECHNIQUE: 2D and realtime digital imaging was performed. CONTRAST MATERIAL: Refer to procedure report. COMPARISON: No exams were available for comparison FINDINGS: Fluoroscopy was provided for Dr. Garcia during the performance of a left knee injection. Please refer to the procedure report for complete details. Ka,r=0.32 mGy IMPRESSION:
[2021-08-14 12:37] VITALS: BP 118/79; PULSE 81; RESP 20; TEMP 36.7; O2SAT 97
[2021-08-14] MEDS: Hylan G-F 20 48 MG/6 ML SYR IU (13:11)
--- NOTE | 2021-08-14 13:11 | PDOC.PAIN_ITS ---
Pain Clinic Procedure Note Procedure Note Procedure Note: INTRA-ARTICULAR LEFT KNEE JOINT SYNVISC-ONE INJECTION Date of Service: August 14, 2021 Patient: Siri Coleman Provider: Ruben Garcia DO, MPH Pre-operative diagnosis: Knee Osteoarthritis Post-operative diagnosis: Same Pre-procedure pain: VAS= 7/10 COMMENTS: She was previously evaluated in our clinic. She is allergy to steroids. Siri Coleman has been referred to the [facility] for intra- articular LEFT knee joint injection. Siri was interviewed and the medical record reviewed. There were no medical, pharmacologic, radiographic or other structural contraindications to attempting fluoroscopically guided intra-articular LEFT knee joint injection. Risks and potential side effects as well as potential benefit of the procedure were reviewed with Ms. Coleman, and her voiced concerns were addressed. After I believed that the patient was completely informed, the printed consent form was signed. Standard time-out procedure was performed. Siri was placed in the supine position on the fluoroscopy table and automated blood pressure cuff and pulse oximeter applied. The skin entry point for approaching superolateral aspect of the LEFT patellafemoral area was identified under the most advantageous fluoroscopic view and marked. Following thorough Chlorhexadine preparation of the skin and draping, 1% lidocaine infiltration of the skin entry point and subcutaneous tissues was accomplished using a 1.5 25G needle. This needle was removed. Next, a 1.5 25G needle was advanced to the center of the patella in a lateral to medial approach under fluoroscopic guidance into the LEFT knee joint. Intra-articular placement was confirmed by a clear arthrogram resulting from the injection of 1 ml Omnipaque 240. Next, the entire vial of Synvisc-One mixed with was injected into the joint. This was followed with one ml of 1% lidocaine to clear the needle of any Synvisc-One. The needle was them removed. (49 mls of Omnipaque was wasted) Siri's vital signs were stable throughout the procedure and were as recorded in the docflowsheet by the nursing staff. If given, dosages of intravenous drugs for anxiolysis and analgesia were documented in MAR. Follow up plans and appointments were discussed with the Siri. Post procedure instruction was given as documented in nursing documentation and having met discharge criteria, Siri was discharged from the [facility]. COMMENTS: No apparent complications. Post-procedure pain: VAS= 1/10. If this procedure is helpful, it can be completed every 6 months. F/U with our office by phone I personally performed this entire procedure. Ruben Garcia DO, MPH Attending Physician Pain Management
[2021-08-14] MEDS: Lidocaine 1% Pres-Free 5 ML VIAL IJ (13:12)
[2021-08-14] MEDS: Omnipaque 240 MG/ML 50 ML BTL (13:12)
[2021-08-14 13:13] VITALS: PULSE 68; RESP 18; O2SAT 100
== END 2021-08-14 12:33 | disposition home or self-care (01) ==
LOC: PC 12:32
PROVIDERS: PCP Nurse Practitioner Family; Visit Provider Preventive Medicine Occupational Medicine
DX: M17.12 Unilateral primary osteoarthritis, left knee (principal)
CPT/HCPCS: 20611; 77002; J3490; Q9967

== ENCOUNTER 2021-09-08 02:12 | Outpatient (CLI) | payer OTHER, SELFPAY ==
[2021-09-08 12:12] LABS: Source Nasal/Nares
[2021-09-08 17:58] LABS: COVID-19 PCR Negative (Negative)
== END 2021-09-08 02:13 | disposition home or self-care (01) ==
LOC: LBO 02:12
PROVIDERS: PCP Nurse Practitioner Family; Visit Provider Obstetrics & Gynecology Gynecology
DX: Z20.822 Contact with and (suspected) exposure to COVID-19 (principal); Z01.818 Encounter for other preprocedural examination
CPT/HCPCS: 87635

== ENCOUNTER 2021-09-08 02:43 | Outpatient (CLI) | payer OTHER, SELFPAY ==
[2021-09-08 08:35] LABS: Abs Immature Grans 0.01 10^3/uL (0.0-0.06); Absolute Basophil Count 0.04 10^3/uL (0.0-0.2); Absolute Eosinophil Count 0.06 10^3/uL (0.0-0.7); Absolute Lymphocyte Count 1.22 10^3/uL (1.2-3.4); Absolute Monocyte Count 0.29 10^3/uL (0.1-0.8); Absolute Neutrophil Count 2.34 10^3/uL (1.2-6.7); Eosinophils % 1.5; HCT 37.8 % (36.0-46.0); HGB 12.2 g/dL (11.2-15.7); Immature Grans % 0.3; Lymphocytes % 30.8; MCH 28.7 pg (27.0-33.0); MCHC 32.3 % (32.0-36.0); MCV 88.9 fL (80-95); MPV 9.4 fL (8.0-11.0); Monocytes % 7.3; Neutrophils % 59.1; Nucleated RBC 0 %; Platelet Count 244 10^3/uL (130-400); RBC 4.25 10^6/uL (3.93-5.22); RDW 12.3 % (11.7-14.6); RDW-SD 40.1 fL; WBC 3.96 10^3/uL (4.4-10.8)
[2021-09-08 09:59] LABS: Anion Gap 7.2 mmol/L (3-11); BUN 13 mg/dL (7-18); CO2 28.8 mmol/L (21.0-32.0); CREATININE 0.9 mg/dL (0.55-1.02); Calcium 9.3 mg/dL (8.5-10.1); Chloride 104 mmol/L (98-107); Glucose 97 mg/dL (74-106); Potassium 4.2 mmol/L (3.5-5.1); Sodium 140 mmol/L (136-145)
== END 2021-09-08 02:44 | disposition home or self-care (01) ==
LOC: LBO 02:43
PROVIDERS: PCP Nurse Practitioner Family; Visit Provider Obstetrics & Gynecology Gynecology
DX: Z01.818 Encounter for other preprocedural examination (principal)
CPT/HCPCS: 36415; 80048; 86850; 86900; 86901; 85025

== ENCOUNTER 2021-09-10 15:02 | Observation (INO) | payer OTHER, SELFPAY ==
[2021-09-10] VITALS (14 sets, daily range): BP systolic 102–149; BP diastolic 50–87; PULSE 52–92; RESP 12–22; TEMP 35.7–37.1; O2SAT 95–100; BMI 23.0
[2021-09-10] MEDS: Lactated Ringers 1,000 ML 125 ML IV ×3 (09:46→21:22)
--- NOTE | 2021-09-10 09:59 | W.ANESPRE ---
General Info Date of Service Date Performed: 09/10/21 Height: 5 ft 3 in Weight: 58.9 kg Body Mass Index (BMI): 23.0 Surgical Procedure: Operation Date: 09/10/21 10:40 Proposed Procedure Side Surgeon p Hysterectomy Vaginal Laparoscopic Assist Zoya Meadows MD s Anterior/Posterior Repair, cysto Zoya Meadows MD Meds Allergies and Home Medications Allergies Allergy/AdvReac Type Severity Reaction Status Date / Time amitriptyline Allergy Intermediate Itching Verified 09/10/21 09:01 clonazepam [From Klonopin] Allergy Intermediate Skin Rash Verified 09/10/21 09:01 Sulfa (Sulfonamide Allergy Intermediate HIVES, RASH Verified 09/10/21 09:01 Antibiotics) metoprolol AdvReac Intermediate dizziness Verified 09/10/21 09:01 steriod Allergy Mild red Uncoded 09/10/21 09:01 patches, hives, headache, denied itching or tongue/throa Home Medication Medication Instructions Recorded Vitamin D3 50 mcg (2,000 unit) 1,000 unit PO DAILY NS 10/07/12 capsule (cholecalciferol (vitamin D3)) ascorbate calcium-bioflavonoid 500 500 mg PO DAILY 10/16/13 mg-200 mg tablet (Kaur-C with Bioflavonoids) multivitamin 1 tab PO DAILY 03/31/21 diclofenac sodium 1 % topical gel 2 g TOPICAL QID PRN #150 g 07/25/21 lidocaine 5 % topical patch 1 patch TOPICAL Q24H PRN #30 ea 08/05/21 omeprazole 20 mg capsule,delayed 20 mg PO DAILY PRN 09/09/21 release Current Visit Medications: Current Medications Generic Name Dose Route Start Last Admin Trade Name Freq PRN Reason Stop Dose Admin Ringer's Solution 1,000 mls @ 125 mls/hr 09/10/21 06:00 09/10/21 09:46 IV 10/09/21 23:59 125 mls/hr INFUSION CORNELL Administration Cefazolin Sodium/Dextrose 2 gm in 50 mls @ 100 mls/hr 09/10/21 06:00 Ancef Duplex IVPB 09/10/21 16:00 PREOP CORNELL IV Miscellaneous Supplies 1 each 09/10/21 06:00 Iv Access IV 10/09/21 23:59 DIRECTED CORNELL Sodium Chloride 0 ml 02/23/22 06:00 Normal Saline Flush 10 Ml Syr IV 10/09/21 23:59 PRN PRN Sodium Chloride 0 ml 09/10/21 06:00 Normal Saline 10 Ml Vial IJ 10/09/21 23:59 DIRECTED PRN Sterile Water 0 ml 09/10/21 06:00 Water,Injection,Sterile 10 Ml Vial IJ 10/09/21 23:59 DIRECTED PRN PFSH Active Problems Active Problems: Problem Status Onset Code Preop examination Z01.818 Right hip pain M25.551 Acute right hip pain M25.551 Left anterior knee pain M25.562 Chronic knee pain M25.569, G89.29 Bilateral inguinal hernia without obstruction or gangrene K40.20 Inguinal bulge R19.09 Encounter for screening laboratory testing for COVID-19 virus Z20.822 Bilateral hand pain M79.641, M79.642 Essential hypertension I10 Hyperlipidemia E78.5 Generalized anxiety disorder F41.1 Depressive disorder F32.9 Palpitations R00.2 ADHD (attention deficit hyperactivity disorder) F90.9 Irritable bowel syndrome K58.9 Pelvic organ prolapse quantification stage 2 cystocele Surgical History Surgical History H/O dilation and curettage (~2000) History of augmentation of both breasts Tobacco Smoking/Tobacco Use Status: Never Alcohol Alcohol Intake: current Alcohol intake frequency: a few times a month Substance Use Substance use: Never Substance use type: does not use Prental History History 7 Para Hx # Term Pregnancies 4 Multiple births Hx # Pregnancies Ectopic pregnancies AB induced Hx Number of Living Children AB spontaneous Vital Signs and Lab Results Vital Signs Most Recent Vital Signs in EMR: Most Recent Vital Signs Temp Pulse Resp BP Pulse Ox 37.1 C 67 18 149/87 H 100 09/10/21 09:18 09/10/21 09:18 09/10/21 09:18 09/10/21 09:18 09/10/21 09:18 Lab Results Blood Type / Crossmatch: Patient ABO/Rh A Negative 09/08/21 Antibody Screen NEGATIVE 09/08/21 Complete Blood Count: White Blood Count 3.96 10^3/uL (4.4-10.8) L 09/08/21 08:20 09/08/21 Red Blood Count 4.25 10^6/uL (3.93-5.22) 09/08/21 08:20 09/08/21 Hemoglobin 12.2 g/dL (11.2-15.7) 09/08/21 08:20 09/08/21 Hematocrit 37.8 % (36.0-46.0) 09/08/21 08:20 09/08/21 Platelet Count 244 10^3/uL (130-400) 09/08/21 08:20 09/08/21 Complete Metabolic Panel: Sodium Level 140 mmol/L (136-145) 09/08/21 08:20 09/08/21 Potassium Level 4.2 mmol/L (3.5-5.1) 09/08/21 08:20 09/08/21 Chloride Level 104 mmol/L (98-107) 09/08/21 08:20 09/08/21 Carbon Dioxide Level 28.8 mmol/L (21.0-32.0) 09/08/21 08:20 09/08/21 Blood Urea Nitrogen 13 mg/dL (7-18) 09/08/21 08:20 09/08/21 Creatinine 0.9 mg/dL (0.55-1.02) 09/08/21 08:20 09/08/21 Estimated GFR/1.73 m2 >= 60.00 (mL/min/1.73m2) 09/08/21 08:20 09/08/21 Calcium Level 9.3 mg/dL (8.5-10.1) 09/08/21 08:20 09/08/21 Glucose Level 97 mg/dL (74-106) 09/08/21 08:20 09/08/21 Liver Function Panel: No Data to Display Coagulation Panel: No Data to Display Cardiac Panel: No Data to Display Arterial Blood Gas: No Data to Display Venous Blood Gas: No Data to Display Pancreas Panel: No Data to Display Thyroid Panel: No Data to Display Infectious Disease: Coronavirus (COVID-19)(PCR) Negative (Negative) 09/08/21 08:26 09/08/21 Coronavirus 2019 Source Nasal/Nares 09/08/21 08:26 09/08/21 Blood Cultures: No Data to Display Toxicology Panel: No Data to Display Imaging and Studies Imaging and Studies Study information below may be from another EMR and interpreted by another provider. Please see original notes in EMR for more complete details. Stress Test Summary: Impressions: Normal study after maximal exercise. Summary: 1. Myocardial perfusion imaging: No myocardial perfusion defects noted. 2. The calculated left ventricular ejection fraction after stress: 59%. LV global systolic function is normal. No left ventricular regional motion abnormality. 3. Stress ECG conclusions: The stress ECG is negative. Del Real treadmill score: 8. This score predicts a low risk of cardiac events. 4. Stress: The target heart rate was achieved. There is a normal resting blood pressure with an appropriate response to stress. The patient experienced no chest pain during stress. Exercise capacity is average for age. 5. Treadmill exercise testing was performed using the Sheldon protocol. The patient exercised for 8 min 8 sec, to protocol stage 3, to a maximal work rate of 10.2mets. Exercise was terminated due to achievement of target heart rate. 01/2019 Echocardiogram Summary: Conclusion Normal left ventricular wall thickness and chamber size. Estimated ejection fraction is 60%. There are no segmental wall motion abnormalities Normal right ventricular size and systolic function Both atria are normal in size There is no significant valvular disease 03/2021 Anesthesia Assessment and Plan Anesthesia History Personal History: No History of Anesthesia Complications Family History: No Family History of Anesthesia Complications Exercise Tolerance Exercise Tolerance: Metabolic Equivalents>4 Pertinent Negatives Pertinent Negatives: No Symptoms of GERD, No Major Cardiovascular Symptoms or Complaints, No Major Pulmonary Symptoms or Complaints and No History of CVA/TIA Cardiac & Pulmonary Exam Cardiac Exam: Normal S1/S2 Heart Sounds Pulmonary Exam: Clear Bilateral Breath Sounds Implantable Cardiac Device Does patient have a Pacemaker or an ICD?: No Airway Exam Known Difficult Airway: No Mallampati Class: 2 Mouth Opening: Normal (> 3cm) Thyromental Distance: Less than 3 cm Neck Range of Motion: Full ROM Neck Circumference: Normal Teeth Condition: Normal Dentition ASA Classification ASA Score: ASA 2 Emergency Case?: No NPO Status NPO Status: NPO Clears >2 hours, Solids >8 hours Anesthesia Plan Resuscitation Status: Full Code Anesthesia Technique: General Anesthesia Airway Planned: Endotracheal Tube Pain Management: Intrathecal Analgesia (Patient concerned about spinal headache, if the placement is not straight-forward, will abort ) Monitors Used: Standard Monitors Preoperative Comments:: Easily gets headaches, normally requires frequent changes in neck position.
[2021-09-10] MEDS: ceFAZolin 2 GM/50 ML BAG IVPB (11:38)
--- NOTE | 2021-09-10 13:19 | UTER_PTH ---
PATIENT: Siri Coleman LOC: U#:[id number] AGE/SX: 56/F ROOM: 218 RE09/10/[address]: Zoya Meadows : 1965 BED: A DIS: 09/11/2021 SPEC #: [id number] RECD: 09/10/21 17:13 STATUS: RAFAEL REBeto #: [id number] GEOVANNA: 09/10/21 13:[address]: Zoya Meadows DEPT: Surgical Specimen RECD BY: Bobbi Langley ENTERED: 09/10/21 17:14 SP TYPE: UTER OTHR DR: KATHY Araujo Tissues: 1 - UTERUS W OR W/O OVARIES(NOT TUMOR/PROLAPSE) Procedures: GROSS AND MICRO LEVEL 4 Comments: [id number]
[2021-09-10] MEDS: Bupivacaine 0.25% Pres-Free 30 ML VIAL (14:17)
[2021-09-10] MEDS: Lidocaine 2% Jelly 6 ML SYR (14:43)
--- NOTE | 2021-09-10 15:41 | W.ANESPOSTOP ---
Postoperative Evaluation Date, Time and Location Date Performed: 09/10/21 Time Performed: 15:42 Patient Location: PACU Vital Signs Most Recent Imported Vital Signs: Most Recent Vital Signs Temp Pulse Resp BP Pulse Ox 36.3 C L 69 21 117/72 97 09/10/21 15:29 09/10/21 15:29 09/10/21 15:29 09/10/21 15:29 09/10/21 15:29 Pain Score Most Recent Pain Score: Most Recent Pain Score Pain Level 0 09/10/21 15:29 Assessment Mental Status: Awake (Alert & Oriented to Patient Baseline) Airway and Respiratory Function: Patent airway with normal (patient baseline) respiratory exam Cardiovascular Function: Hemodynamically Stable Hydration Status: Adequately Hydrated Nausea & Vomiting: No Nausea or Vomiting Pain: Pt. Denies Any Pain Peripheral Nerve Block: Patient did not receive a nerve block
[2021-09-10] MEDS: diphenhydrAMINE 25 MG CAP PO ×2 (16:16→18:34)
[2021-09-10] MEDS: Normal Saline Flush 10 ML SYR IV ×2 (17:42→20:43)
[2021-09-10] MEDS: diphenhydrAMINE 50 MG/ML VIAL 12.5 MG IVP (17:42)
[2021-09-10] MEDS: Ketorolac 30 MG/ML VIAL IVP (20:43)
--- NOTE | 2021-09-10 21:40 | ROE_ITS ---
Date of service: 09/10/21 Time of Service: 21:40 Operative Note Operative Note DATE OF PROCEDURE: 09/10/21 PRE-OP DIAGNOSIS: Stage II uterine and anterior vaginal prolapse Incidental cystotomy PROCEDURE: Laparoscopic-assisted vaginal hysterectomy with bilateral salpingo-oophorectomy. Anterior colporrhaphy. Repair of cystotomy. Cystoscopy SURGEON: Zoya Meadows ASSISTING SURGEON: Pricilla Kruse ANESTHESIA TYPE: General LMA/ETT and Spinal Refer to Anesthesia Record ESTIMATED BLOOD LOSS: 200 PATHOLOGY: other (Uterus cervix bilateral ovaries and fallopian tubes to pathology) COMPLICATIONS: Other (Cystotomy at the time of entry into the anterior cul-de-sac) Patient was transported to: PACU Patient's condition: stable Implants: None Indications: ?56-year-old postmenopausal female with longstanding stage II uterine prolapse and cystocele who desires definitive therapy. Findings: Normal uterus tubes and ovaries. Normal pelvis and upper abdomen. Procedure Description: Patient was taken to the operating room where she received spinal anesthesia followed by general endotracheal anesthesia. She received 2 g of Ancef upon arrival in the OR. She was then placed in the dorsal lithotomy position in [facility] with SCDs in place. After being prepped and draped in the usual sterile fashion a surgical timeout was performed. Huerta catheter was placed to gravity drainage. A bivalve speculum was placed in the vagina and the anterior lip of the cervix was grasped with a single-tooth tenaculum. A Zumi uterine manipulator was successfully inserted into the uterine cavity and the device left in place. Attention was then turned to the patient's abdomen. The umbilical fold was infiltrated with quarter percent Marcaine without epinephrine. A scalpel was then used to make a 12mm vertical skin incision in the umbilical fold. Two penetrating towel clips were used to tent up the skin and through the periumbilical incision and a Veres needle was introduced into the abdomen with carbon dioxide as the distention medium. Intra-abdominal placement was confirmed by a drop in the intra-abdominal pressure. Once a pneumoperitoneum was established a 12 mm Visiport was placed under direct visualization. Patient was then placed in Trendelenburg position. Two sites approximately 6 cm diagonally from the umbilical incision the skin were infiltrated with 1cc of 0.25% Marcaine without epinephrine, incised with a scalpel and two 5 mm lower ports were placed under direct visualization. After careful inspection of the pelvis a LigaSure electrocautery device was used to clamp, cauterize and transect the suspensory ligament of the left ovary. The left broad ligament was clamped, cauterized and transected to access the left round ligament which was then clamped, cauterized and transected to the level of the lower uterine segment. Uterine vessels were clamped and cauterized. The vesico-uterine peritoneum was incised and the the from the lower uterine segment and mobilized off of the body of the cervix. The pedicles of the suspensory, round and broad ligaments were inspected and noted to be hemostatic. On the contralateral side the right ovarian suspensory ligament, the round ligament and right broad ligament were sequentially clamped, cauterized and transected using the Ligasure device to the level of the insertion of the radha rine vessels. The remaining the vesicouterine peritoneum was incised across the lower uterine segment and the bladder flap created using the Ligasure device and gentle counter traction. All pedicles were inspected and noted to be hemostatic. Decision was made to proceed with the vaginal portion of the case. Laparoscopic instruments were removed and the ports left in place. The pneumoperitoneum was reduced, and the was abdomen covered with sterile drape. A weighted vaginal speculum was placed in the vagina and the anterior and posterior lips of the cervix were grasped with Pascual clamps and the body of the cervix infiltrated with a dilute solution of 1% Lidocaine with epinephrine. A circumferential incision of the cervical epithelium was made with a Bovie electrocautery. Upon dissection of the bladder off of the vesicouterine fascia using a Metzenbaum scissors there was a 1.5 cm incision into the bladder dome that was identified and repaired. The bladder mucosa was closed using 4-0 Monocryl in a pursestring fashion. 4-0 vicryl was then used to repair the muscle layer of the bladder followed by a final closure of the bladder adventitia with 4-0 Monocyrl. After the repair was completed the anterior cul-de-sac was entered and the bladder retracted away from the operative field. The posterior cul-de-sac was entered sharply and through the this incision a long billed weighted speculum was placed. The left and right uterosacral ligament complexes were identified clamped, transected and suture-ligated and the suture held long. The remaining right and left broad ligament attatchments were sequentially clamped, cauterized, and transected and the specimen was passed off of the operative field. The parietal peritoneum of the vaginal cuff was closed with a pursestring suture of 2-0 Vicryl. Prior to the the closure of the vaginal cuff the anterior colporrhaphy was performed. An Allis clamp is placed 1 cm proximal to the urethra along the midline of the vaginal wall and two more Allis clamps on either side of the most superior aspect of the vaginal cuff. The vaginal epithelium was injected with approximately 10 cc of 1% lidocaine with epinephrine.? A transverse incision is made between the two Allis clamps on the vaginal cuff. Metzenbaum scissors are then used to dissect the vaginal mucosa off the underlying tissues anteriorly. Once adequate mobility of the vaginal mucosa was achieved, a small vertical incision was made with Metzenbaum scissors in the midline, perpendicular to the initial incision. The scissors were placed beneath the vaginal mucosa advanced with gentle pressure with care taken to spread the overlying mucosa The path of the scissors was incised, extending the vertical incision to the level of the Allis clamp proximal to the urethra. Allis clamps were placed on the mucosal edges to assist in retraction while further dissection of the vaginal mucosa from the underlying tissues was performed bilaterally.? Using a combination of blunt technique and Metzenbaum scissors the mucosa was dissected off the entirety of the bladder. Plication of the vaginal muscularis and adventitia was then performed using 0- Vicryl? [id number] sutures. with the initial sutures placed laterally in the field of dissection.? The 0-Vicryl sutures were tied in the midline effectively plicating the defect. Redundant vaginal mucosa was trimmed with curved Awad scissors. The vaginal incision is closed in a vertical fashion with a running suture of 0 Vicryl.? The suture line was inspected noted be hemostatic.? Another running suture of 0 Vicryl was then used to reapproximate the remaining vaginal cuff edges in a vertical fashion from the superior to the inferior margin. Care was taken to reapproximate in the midline the sutures holding the uterosacral ligaments which further elevated the vaginal cuff. At the completion of the closure suture line was inspected and noted to be hemostatic. Instruments removed from the vagina and attention was again turned to the abdomen where a pneumoperitoneum was reestablished and the pelvis inspected using the laparoscope.? The vaginal cuff was intact and was hemostatic as were the round ligament and broad ligament pedicles. The instruments were removed from the port sites, the pneumoperitoneum reduced and the ports removed. The fascia of the periumbilical skin incision was closed with interrupted suture of 0 Vicryl.? The skin of all port site incisions were reapproximated with a subcuticular closure of 4-0 Monocryl and and covered with skin glue. A cystoscopy was performed with both ureteral jets patent with a brisk reflux of urine from each.? The bladder was inspected and the site of the bladder repair was hemostatic.? Huerta catheter was reinserted to gravity drainage and the patient was placed in the dorsal supine position, awakened, extubated, and transported recovery area in stable condition.? All sponge lap needle counts correct x2.
[2021-09-10] MEDS: NALBUPHINE 5 MG in Normal Saline 50 ML 100 MG IVPB (21:42)
[2021-09-11] MEDS: Ketorolac 30 MG/ML VIAL IVP ×2 (02:45→08:20)
[2021-09-11 02:47] VITALS: BP 108/63; PULSE 69; RESP 18; TEMP 36.3
[2021-09-11] MEDS: NALBUPHINE 5 MG in Normal Saline 50 ML 100 MG IVPB (03:15)
[2021-09-11 06:33] LABS: HGB 12.2 g/dL (11.2-15.7); MCH 29.3 pg (27.0-33.0); MCHC 32.1 % (32.0-36.0); MCV 91.1 fL (80-95); MPV 9.8 fL (8.0-11.0); Platelet Count 240 10^3/uL (130-400); RBC 4.17 10^6/uL (3.93-5.22); RDW-SD 40.2 fL; WBC 9.67 10^3/uL (4.4-10.8)
[2021-09-11 07:16] VITALS: BP 122/70; PULSE 61; RESP 16; TEMP 36; O2SAT 99
--- NOTE | 2021-09-11 09:12 | DSE_ITS ---
Date of service: 09/11/21 Time of Service: 09:12 DS: Diagnosis Discharge Diagnosis (1) Pelvic organ prolapse quantification stage 2 cystocele: Status: Chronic (2) S/P laparoscopic assisted vaginal hysterectomy (LAVH): Status: Acute (3) S/P BSO (bilateral salpingo-oophorectomy): Status: Acute (4) History of anterior colporrhaphy: Status: Acute (5) H/O cystostomy: Status: Acute Discharge Plan Disposition Patient Disposition: HOME Condition: Fair Discharge Details Admit Date/Time: 09/10/21 15:02 Admit Provider: Zoya Meadows Attending Provider: Zoya Meadows [facility]: Patient was admitted the day of surgery after having undergone a laparoscopic- assisted vaginal hysterectomy with bilateral salpingo-oophorectomy. Anterior colporrhaphy was performed. Had incidental cystotomy that was diagnosed and repaired at the time of surgery. She was discharged home on postop day 1 with Huerta catheter to gravity drainage. Plan is to have her follow-up at the [facility] for retrograde bladder fill and trial of voiding on 09/18/2021. She will have ibuprofen and acetaminophen for pain control. Patient was instructed to notify me if she needs additional medication for pain. I will order a daily dose of nitrofurantoin while the bladder catheter is in place. Home Meds and New Rx's Prescriptions: No Action multivitamin Tablet 1 tab PO DAILY 0RF cholecalciferol (vitamin D3) [Vitamin D3] 2,000 UNIT capsule 1,000 unit PO DAILY 0RF diclofenac sodium 1 % gel 2 g topical QID PRN (Reason: arthritis pain) Qty: 150 4RF Rx Instructions: Apply to affected joints four times a day as needed for pain lidocaine 5 % adhesive patch,medicated 1 patch topical Q24H PRN (Reason: pain) Qty: 30 1RF Rx Instructions: leave on most painful area for up to 12 hrs Kaur-C with Bioflavonoids 1 EACH tablet 500 mg PO DAILY 0RF omeprazole 20 mg capsule,delayed release(DR/EC) 20 mg PO DAILY PRN0RF Discharge Instructions Additional Instructions: Make an appointment for [facility] on 09/18/2021 to have voiding trial. Call Dr. Meadows if you need additional pain medicine. Your pharmacy for daily dose of nitrofurantoin for prevention of a bladder infection. Please call Dr. Meadows directly at . Stand Alone Forms: DSU Post Gynecology Surgery Activity:: Activity as Tolerated Equipment/Supplies:: Leg bag Diet:: As Tolerated Discharge Orders Discharge Orders: Discharge Order (Routine); Ordered 09/11/21 Ordered By: Zoya Meadows DS: Summary Time Spent with Patient providing and/or coordinating discharge services: Less than 30 minutes Status at Discharge Functional status at discharge: independent ambulation Overall status at discharge: patient is progressing back to baseline Mental Status: mental status grossly normal Speech and Movement: speech and movement normal Mood: congruent mood Affect: normal affect Exam Narrative Exam Narrative: Patient underwent the above stated procedure with incidental cystotomy that was repaired at the time of surgery. She be discharged to home on postop day 1 with Huerta to gravity drainage for approximately a week. She will follow-up for a retrograde bladder filling and voiding trial in 1 week. Patient is tolerating postop pain with ibuprofen and acetaminophen and does not require narcotics at this time. She was given discharge instructions and is aware how to empty her Huerta bag. Const General: cooperative Resp Effort & Inspection: normal respiratory effort Auscultation: clear to auscultation bilaterally Cardio Rate: regular rate Rhythm: regular rhythm GI Inspection: abdominal wall ecchymosis (At 12 mm umbilical port) and incision (Clean dry and intact with skin glue in place) Palpation: soft, no hepatosplenomegaly, no masses and nontender Percussion: tympanic to percussion (Abdominal distention-secondary to insufflation gas in abdomen) General: deferred Back/Spine/Pelvis Back: no CVA tenderness Skin General skin exam: no rashes or lesions noted Extrem General: normal to inspection and full ROM Psych Appearance: grossly normal Mental Status: mental status grossly normal Speech and Movement: speech and movement normal Mood: congruent mood Affect: normal affect Thought Process: normal DS: Data Vitals/I&O Vitals and I&O: Vital Signs Temperature 96.8 F L 09/11/21 07:16 Temperature Source Tympanic 09/11/21 07:16 Pulse 61 09/11/21 07:16 Pulse Rhythm Regular 09/11/21 03:23 Respiratory Rate 16 09/11/21 07:16 Respiratory Effort 09/11/21 03:23 Respiratory Depth Normal 09/11/21 03:23 Respiratory Pattern Normal 09/11/21 03:23 Blood Pressure 122/70 09/11/21 07:16 Pulse Oximetry 99 09/11/21 07:16 Respiratory End-tidal CO2 25 09/10/21 15:29 Oxygen Delivery Method Room Air 09/11/21 07:16 Oxygen Flow Rate 0 09/11/21 07:16 Pain Level 0 09/10/21 20:43 Comment 09/10/21 16:01 Intake & Output 09/10/21 09/10/21 09/11/21 11:59 23:59 11:59 Intake Total 1710.5 / 1710.5 1050.5 / 1050.5 Output Total 400 / 400 1100 / 1100 Balance 1310.5 / 1310.5 -49.5 / -49.5 Weight 129 lb 13.636 oz Intake: IV 1350.5 / 1350.5 1050.5 / 1050.5 Oral 360 / 360 Output: Urine 400 / 400 1100 / 1100 Other: Urine Color Green Green Indigo Urine Appearance Clear Clear Clots Comment green Emesis Description None Voiding Methods Indwelling Catheter Data Completed and Pending Labs on day of discharge: Labs from last 24 hours 09/11/21 06:15 WBC 9.67 RBC 4.17 Hgb 12.2 Hct 38.0 MCV 91.1 MCH 29.3 MCHC 32.1 RDW 12.0 Plt Count 240 MPV 9.8 PFSH All Active Problems (Updated 09/11/21 @ 09:14 by Zoya Meadows MD) H/O cystostomy (Acute) 09/10/2021. At the time of LAVH. Treated with Huerta catheter to gravity drainage x1 week. History of anterior colporrhaphy (Acute) 09/10/2021 S/P BSO (bilateral salpingo-oophorectomy) (Acute) 09/10/2021. At time of laparoscopic-assisted vaginal hysterectomy with anterior colporrhaphy S/P laparoscopic assisted vaginal hysterectomy (LAVH) (Acute) 09/10/2021 Right hip pain (Acute) Acute right hip pain (Acute) Left anterior knee pain (Acute) S/P fall Chronic knee pain (Acute) Bilateral inguinal hernia without obstruction or gangrene (Acute) Inguinal bulge (Acute) Encounter for screening laboratory testing for COVID-19 virus (Acute) Bilateral hand pain (Acute) Essential hypertension (Acute) Hyperlipidemia (Acute) Generalized anxiety disorder (Chronic) Depressive disorder (Chronic) Palpitations (Chronic) ADHD (attention deficit hyperactivity disorder) (Chronic) Irritable bowel syndrome (Chronic) Pelvic organ prolapse quantification stage 2 cystocele (Chronic) Surgical History (Updated 09/11/21 @ 09:15 by Zoya Meadows MD) H/O dilation and curettage (~2000) History of augmentation of both breasts Family History Mother Hyperlipidemia Cancer of parotid gland Hypertension Depression Father Hyperlipidemia Hypertension Type 2 diabetes mellitus Brother No problems noted. Brother No problems noted. Brother No problems noted. Son Type 1 diabetes mellitus Son No problems noted. Son No problems noted. Daughter No problems noted. Paternal Grandfather No problems noted. Paternal Grandmother Diabetes Stroke Maternal Grandfather No problems noted. Maternal Grandmother Type 2 diabetes mellitus Social History Smoking/Tobacco Use Status: Never Smoking risk assessment performed?: Yes Alcohol Intake: current Alcohol Intake frequency: a few times a month Drug use: Never Substance use type: does not use Household members: spouse and other Details: 01/2018 maday Bell lives at the house Housing: house Number of Children: 4 current occupation: RN outpatient clinic [employer] Pets and animals: Yes Pets and animals: dog(s) Sexually active: Yes Do you think of yourself as: straight/heterosexual Current gender identity: female What is your relationship status?: How often do you talk on the phone with friends or family?: once per week How often do you get together with friends or relatives?: once per week How often do you attend mu-ism or gnosticism services?: 4 or more times per year Do you belong to any clubs or organized social groups?: no Panel score (0-1 are the most socially isolated patients): 2 What type of physical activity do you participate in: walking and other Details: elliptical Duration: 60-90 minutes/day Frequency: daily Cyndi/Uatsdin: Gnosticism Seatbelt use: always Helmet use: Yes Helmet use: always Do you feel safe at home: Yes Do you feel safe in your relationship?: Yes Additional Social history: Unable to assess privately- in room. Female Reproductive History Menstrual control method: none Menopause type: natural Date of menopause: 02/10/18 History History 7 Para Hx # Term Pregnancies 4 Multiple births Hx # Pregnancies Ectopic pregnancies AB induced Hx Number of Living Children AB spontaneous
== END 2021-09-11 11:02 | disposition home or self-care (01) ==
LOC: MS 16:01
PROVIDERS: Admitting Provider Obstetrics & Gynecology Gynecology; PCP Nurse Practitioner Family; Visit Provider Obstetrics & Gynecology Gynecology
PROC: 0UT9FZZ Resection of Uterus, Via Natural or Artificial Opening With Percutaneous Endoscopic Assistance (ICD-10-PCS; CPT 58552; principal; 2021-09-10 10:30)
DX: N81.2 Incomplete uterovaginal prolapse (principal); N99.71 Accidental puncture and laceration of a genitourinary system organ or structure during a genitourinary system procedure; Y65.8 Other specified misadventures during surgical and medical care; Y92.234 Operating room of hospital as the place of occurrence of the external cause
CPT/HCPCS: 58552; 57240; 51860; 36415; 85027; 88305; 88307; G0378; J0131; J0690; J1100; J1200; J1885; J2001; J2250; J2405; J2704; J3010; J3490

== ENCOUNTER 2021-09-19 09:46 | Outpatient (CLI) | payer OTHER, SELFPAY ==
--- NOTE | 2021-09-19 08:15 | DI.RAD_ITS ---
Exam(s) XR HIP RT COMPLETE AP PELVIS EXAM: XR HIP RT COMPLETE AP PELVIS CLINICAL HISTORY: right hip pain. TECHNIQUE: 2D digital imaging was performed of the right hip. Two images were obtained. AP pelvis a nd lateral right hip views were obtained. COMPARISON: CR COCCYX ONLY from 12/24/2008 CR BILATERAL HIPS ADULT from 10/30/2009 CR XR HIP RT COMPLETE AP PELVIS from 05/24/2019 FINDINGS: BONES: No acute fracture is present. No bony destructive lesion is seen. Sclerotic focus in the right iliac bone superior to the right acetabulum which is stable. JOINTS: No dislocation present. The hips are stable with mild joint space narrowing bilaterally. SOFT TISSUE: Normal. IMPRESSION: Stable mild degenerative changes of the hips. No acute abnormality. DATA REPOSITORY: RADIATION DOSE DELIVERED:
== END 2021-09-19 09:47 | disposition home or self-care (01) ==
LOC: DIORS 09:47
PROVIDERS: PCP Nurse Practitioner Family; Referring Provider Nurse Practitioner Family; Visit Provider Physician Assistant
DX: M25.551 Pain in right hip (principal); M16.11 Unilateral primary osteoarthritis, right hip
CPT/HCPCS: 73502

== ENCOUNTER → 2021-12-03 01:25 | Outpatient (CLI) | payer OTHER, SELFPAY ==
--- NOTE | 2021-12-03 15:18 | DI.MAMMO_ITS ---
Exam(s) MG MAMMO SCREENING 60 MIN DUR EXAM: MG MAMMO SCREENING 60 MIN DUR CLINICAL HISTORY: breast cancer screening, hx augmentation both breasts, Z98.890, Z12.39. TECHNIQUE: Bilateral full field digital CC and MLO mammographic images were obtained with 3D tomosyn thesis and utilizing computer aided detection (CAD). COMPARISON: Prior mammograms were reviewed, the most recent being September 2020. FINDINGS: Both conventional and implant displacement views were performed. Retropectoral radiopaque silicone implants are again noted. These appear intact There are no CAD designations There are no new spiculated masses nor malignant appearing microcalcification groups. There is no significant architectural distortion nor skin thickening-retraction. IMPRESSION: No radiographic evidence of malignancy. BI-RADS Category 1 - Negative Breast Density - Category B - Scattered areas of fibroglandular density Breast density Category C or D implies that the patient has dense breast tissue. Dense breast tissue can make it harder to find cancer on a mammogram. Dense breast tissue is also associated with an incr eased risk of breast cancer. This information about the result of the mammogram report was provided to the patient to raise their awareness. Use this report when you speak with the patient about their risks for breast cancer, which includes their family history. At that time, you may recommend additional screening tests (Ultrasoun d or MRI) as these tests may add significant information. A negative radiographic report should not delay biopsy if a dominant or clinically suspicious mass is present. Up to ten percent of cancers are not identified on mammography. A negative report may reinforce clinical impression. Adenosis and dense breasts may obscure an underlying neoplasm. False positive reports average 6 to 10%. Patient will receive a letter notifying them of these results.
== END ==
PROVIDERS: PCP Nurse Practitioner Family; Visit Provider Obstetrics & Gynecology Gynecology
DX: Z12.31 Encounter for screening mammogram for malignant neoplasm of breast (principal); Z98.82 Breast implant status
CPT/HCPCS: 77063; 77067

== ENCOUNTER → 2022-04-03 00:52 | Outpatient (CLI) | payer OTHER, SELFPAY ==
--- NOTE | 2022-04-03 08:00 | DI.MRI_ITS ---
Exam(s) MR LOWER JOINT LT WO EXAM: MR LOWER JOINT LT WO CLINICAL HISTORY: PAIN,internal derangement,m23.92,chrondromalacia,m22.42 TECHNIQUE: Multiplanar multisequence MRI of the knee was performed. COMPARISON: MR MR LOWER JOINT LT WO from 09/18/2020 CR XR KNEE LT 3V AP,LAT,AKASH from 06/04/2021 FINDINGS: EFFUSION: There is a minimal amount of increased joint fluid. No large joint effusion and there is n o Ricardo cyst in the popliteal fossa. MARROW:No evidence of fracture. Mild heterogeneous marrow signal again noted in the distal diaphysis and metaphysis of the femur. There is mild subarticular edema in the medial tibial plateau. There are no significant osseous lesions. PATELLOFEMORAL COMPARTMENT: The quadriceps tendon is intact. The patellar ligament is intact. There is mild chondromalacia the retropatellar cartilage although the previously present small fissur e is less evident. 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 There is no formed osteochondral defect at this level.There is no intraosseous signal to sugg est recent patellar dislocation. There are no patellar retinacular tears. CRUCIATE LIGAMENTS: The anterior cruciate ligament is intact.The posterior cruciate ligament is intac t. MEDIAL COMPARTMENT/MEDIAL MENISCUS: There are no tears of the medial meniscus evident.. There is a tiny focus of signal abnormality in the cartilage over the anterior weight-bearing surface of the medial femoral condyle with small focus of subarticular edema at this level, unchanged from M RI of September 2020. There is no unstable osteochondral defect at this level.. MEDIAL COLLATERAL LIGAMENT: Intact LATERAL COMPARTMENT/LATERAL MENISCUS: There is no evidence of lateral meniscal tear.There are no harley dral defects, osteochondral defects, subarticular marrow edema, nor osteophytes evident. ILIOTIBIAL BAND: Intact LATERAL COLLATERAL LIGAMENT COMPLEX: The fibular collateral ligament is intact. The biceps femoris t endon is intact.Popliteus muscle and tendon are intact. IMPRESSION: 1. Minimal change from the prior MRI scan of September 2020. There is some chondromalacia of the retropa tellar cartilage again noted. There appears to be slight further thinning of the retropatellar carti otis over the medial facet and developing mild focus of subarticular edema in the posterior patella i n this region. The small fissure which was present in the lateral facet retropatellar cartilage is s lightly less evident on the present study. Only small surface defect at this level evident at this t ragini. Thickness of the retropatellar cartilage over the lateral facet remains stable. 2. There are no meniscal tears, cruciate ligament tears, nor collateral ligament tears. 3. Small focus of chondral defect-degenerative change in the medial anterior aspect of the medial fem oral condyle is again noted, unchanged and without a distinct osteochondral defect evident at this le raysa. 4. Mild bone contusion signal evident in the medial tibial plateau, not previously present on the [facility] 2020 study. 5. Mild increased joint fluid, similar to the prior study. No large joint effusion. No Ricardo cyst. DATA REPOSITORY:
== END ==
PROVIDERS: PCP Nurse Practitioner Family; Visit Provider Student in an Organized Health Care Education/Training Program
DX: M22.42 Chondromalacia patellae, left knee (principal)
CPT/HCPCS: 73721

== ENCOUNTER 2022-05-20 07:23 | Outpatient (RCR) | payer OTHER, SELFPAY ==
[2022-05-20 08:09] LABS: ESR 5 mm/hr (0-30)
[2022-05-20 08:31] LABS: Anion Gap 3.1 mmol/L (3-11); BUN 23 mg/dL (7-18); CO2 31.9 mmol/L (21.0-32.0); CREATININE 0.9 mg/dL (0.55-1.02); Calcium 9.4 mg/dL (8.5-10.1); Calculated LDL 152 mg/dL (<100); Chloride 107 mmol/L (98-107); Cholesterol 238 mg/dL (<200); Estimated GFR 75.03 (mL/min/1.73m2); Glucose 94 mg/dL (74-106); HDL Cholesterol 71 mg/dL (40-60); Potassium 5.1 mmol/L (3.5-5.1); Sodium 142 mmol/L (136-145); TSH (W/Ref FT4) 2.93 uIU/mL (0.36-3.74); Triglyceride 76 mg/dL (<150)
[2022-05-20 17:23] LABS: CRP, High Sensitivity 1.13 mg/L (See Note); Rheumatoid Factor 29.3 IU/mL (<12.0)
== END 2022-06-17 23:59 | disposition home or self-care (01) ==
LOC: INF 07:23
PROVIDERS: PCP Nurse Practitioner Family; Visit Provider Nurse Practitioner Family
DX: E78.5 Hyperlipidemia, unspecified (principal); R00.2 Palpitations; F41.1 Generalized anxiety disorder
CPT/HCPCS: 36415; 80048; 80061; 85652; 86141; 83036; 84443; 86431

== ENCOUNTER 2022-07-29 10:02 | Outpatient (CLI) | payer OTHER, SELFPAY ==
--- NOTE | 2022-07-29 10:00 | RT.EKG_ITS ---
APPROVED REPORT Exam: Resting ECG Reason for Exam: Dizziness/nausea Patient Location: O HR:65 bpm ECG Measurements Heart Rate 65 AXIS LA 129 P 62 QRSd 96 QRS 76 QT 417 T 74 QTc 434 Conclusion Sinus rhythm...normal P axis, V-rate 50- 99 Normal Electrocardiogram
== END 2022-07-29 10:03 | disposition home or self-care (01) ==
LOC: DI.CM 10:03
PROVIDERS: PCP Nurse Practitioner Family; Visit Provider Nurse Practitioner Family
DX: R42 Dizziness and giddiness (principal)
CPT/HCPCS: 93010

== ENCOUNTER 2022-07-29 12:28 | Outpatient (CLI) | payer OTHER, SELFPAY ==
[2022-07-29 12:14] LABS: Abs Immature Grans 0.01 10^3/uL (0.0-0.06); Absolute Basophil Count 0.05 10^3/uL (0.0-0.2); Absolute Eosinophil Count 0.09 10^3/uL (0.0-0.7); Absolute Lymphocyte Count 1.38 10^3/uL (1.2-3.4); Absolute Monocyte Count 0.32 10^3/uL (0.1-0.8); Eosinophils % 1.8; HCT 38.2 % (36.0-46.0); HGB 12.3 g/dL (11.2-15.7); Immature Grans % 0.2; Lymphocytes % 27.9; MCH 28.8 pg (27.0-33.0); MCHC 32.2 % (32.0-36.0); MCV 90 fL (80-95); MPV 9.6 fL (8.0-11.0); Monocytes % 6.5; Neutrophils % 62.6; Platelet Count 266 10^3/uL (130-400); RBC 4.27 10^6/uL (3.93-5.22); RDW 12.3 % (11.7-14.6); RDW-SD 40.4 fL; WBC 4.95 10^3/uL (4.4-10.8)
[2022-07-29 13:17] LABS: ALT 20 U/L (14-59); AST 18 U/L (15-37); Albumin 4.1 g/dL (3.4-5.0); Alkaline Phosphatase 62 U/L (46-116); Anion Gap 5.8 mmol/L (3-11); BUN 19 mg/dL (7-18); Bilirubin, Total 0.4 mg/dL (0.2-1.0); CO2 32.2 mmol/L (21.0-32.0); CREATININE 0.8 mg/dL (0.55-1.02); Calcium 9.5 mg/dL (8.5-10.1); Chloride 104 mmol/L (98-107); Estimated GFR 86.42 (mL/min/1.73m2); Glucose 100 mg/dL (74-106); Sodium 142 mmol/L (136-145); TSH (W/Ref FT4) 2.17 uIU/mL (0.36-3.74); Total Protein 7.2 g/dL (6.4-8.2)
== END 2022-07-29 12:29 | disposition home or self-care (01) ==
PROVIDERS: PCP Nurse Practitioner Family; Visit Provider Nurse Practitioner Family
DX: R42 Dizziness and giddiness (principal)
CPT/HCPCS: 36415; 80053; 84443; 85025

== ENCOUNTER 2022-11-18 10:54 | Outpatient (RCR) | payer OTHER, SELFPAY ==
[2022-11-18 12:47] LABS: ESR 2 mm/hr (0-30)
[2022-11-18 13:07] LABS: TSH (W/Ref FT4) 2.06 uIU/mL (0.36-3.74)
[2022-11-18 13:21] LABS: C-Reactive Protein 0.08 mg/dL (0.0-0.3)
[2022-11-18 21:55] LABS: Rheumatoid Factor 24.4 IU/mL (<12.0)
[2022-11-20 13:53] LABS: dsDNA Ab, IgG <12.3 IU/mL (<30.0)
[2022-11-20 15:17] LABS: ANA Interpretation Negative (Negative)
== END 2022-12-16 23:59 | disposition home or self-care (01) ==
LOC: INF 10:54
PROVIDERS: Nurse Practitioner Family; PCP Nurse Practitioner Family; Visit Provider Nurse Practitioner Family
DX: M25.50 Pain in unspecified joint (principal); R42 Dizziness and giddiness
CPT/HCPCS: 36415; 85652; 84443; 86038; 86140; 86225; 86431

== ENCOUNTER 2022-12-09 02:17 | Outpatient (CLI) | payer OTHER, SELFPAY ==
--- NOTE | 2022-12-09 14:45 | DI.MAMMO_ITS ---
Exam(s) MG MAMMO SCREENING 60 MIN DUR EXAM: MG MAMMO SCREENING 60 MIN DUR CLINICAL HISTORY: breast cancer screening, Hx augmentation both breasts, Z98.890, Z12.39. TECHNIQUE: Bilateral full field digital CC and MLO mammographic images were obtained with 3D tomosyn thesis and utilizing computer aided detection (CAD). Both conventional and implant displacement views were performed. COMPARISON: Prior mammograms were reviewed. FINDINGS: Retropectoral silicone implants again noted. Are no CAD designations on the implant displacement views. There are no new spiculated masses nor malignant appearing microcalcification groups. There is no significant architectural distortion nor skin thickening-retraction. IMPRESSION: No radiographic evidence of malignancy. BI-RADS Category 1 - Negative Breast Density - Category B - Scattered areas of fibroglandular density Breast density Category C or D implies that the patient has dense breast tissue. Dense breast tissue can make it harder to find cancer on a mammogram. Dense breast tissue is also associated with an incr eased risk of breast cancer. This information about the result of the mammogram report was provided to the patient to raise their awareness. Use this report when you speak with the patient about their risks for breast cancer, which includes their family history. At that time, you may recommend additional screening tests (Ultrasoun d or MRI) as these tests may add significant information. A negative radiographic report should not delay biopsy if a dominant or clinically suspicious mass is present. Up to ten percent of cancers are not identified on mammography. A negative report may reinforce clinical impression. Adenosis and dense breasts may obscure an underlying neoplasm. False positive reports average 6 to 10%. Patient will receive a letter notifying them of these results.
== END 2022-12-09 02:37 ==
LOC: DI 02:18
PROVIDERS: PCP Nurse Practitioner Family; Visit Provider Obstetrics & Gynecology Gynecology
DX: Z12.31 Encounter for screening mammogram for malignant neoplasm of breast (principal); Z98.890 Other specified postprocedural states; Z98.82 Breast implant status
CPT/HCPCS: 77063; 77067

== ENCOUNTER 2023-04-05 13:56 | Outpatient (RCR) | payer OTHER, SELFPAY ==
[2023-04-05 16:31] LABS: Vitamin B12 675 pg/mL (193-986)
[2023-04-05 17:45] LABS: Creatine Kinase 135 U/L (26-192)
[2023-04-06 10:34] LABS: Hepatitis C Ab w Rflx HCV PCR Negative (Negative)
[2023-04-06 11:29] LABS: C3 Complement 105 mg/dL (81-157); C4 Complement 20 mg/dL (13-39)
[2023-04-06 11:43] LABS: Thyroglobulin Antibody <15 U/mL (<=60); Thyroperoxidase Antibody <28 U/mL (<=60)
[2023-04-07 14:31] LABS: RNP Ab, IgG 2.3 Units (<20.0); SS-A Antibody 1.7 Units (<20.0); SS-B (La) Ab, IgG 1.6 Units (<20.0); Sm (Smith) Ab, IgG 1.9 Units (<20.0)
== END 2023-04-17 23:59 | disposition home or self-care (01) ==
LOC: INF 13:56
PROVIDERS: PCP Nurse Practitioner Family; Visit Provider Internal Medicine Rheumatology
DX: R76.8 Other specified abnormal immunological findings in serum (principal); Z13.21 Encounter for screening for nutritional disorder
CPT/HCPCS: 82306; 82550; 86376; 86803; 82607; 86160; 86235

== ENCOUNTER → 2023-08-16 02:17 | Outpatient (CLI) | payer OTHER, SELFPAY ==
--- NOTE | 2023-08-16 07:45 | DI.MRI_ITS ---
Exam(s) MR LOWER JOINT LT WO EXAM: MR LOWER JOINT LT WO CLINICAL HISTORY: persistent pain,LT KNEE, M25.562. TECHNIQUE: Multiplanar multisequence MRI was performed. COMPARISON: MR MR LOWER JOINT LT WO from 04/03/2022 FINDINGS: BONES: There is no fracture or contusion pattern. JOINTS: There is thinning of the articular cartilage down to the bone in the patella with subchondral edema. No effusion is present. TENDONS: Extensor mechanism: Unremarkable. Medial retinaculum: Unremarkable. Lateral retinaculum: Unremarkable. Popliteus: Unremarkable. MUSCLES: Unremarkable. MENISCI: The medial meniscus is unremarkable. The lateral meniscus is unremarkable. SOFT TISSUES: Unremarkable. LIGAMENTS: Anterior Cruciate: Unremarkable. Posterior Cruciate: Unremarkable. Medial Collateral:Unremarkable. Lateral Collateral: Unremarkable. OTHER: IMPRESSION: 1. Chondromalacia of the patellar cartilage. 2. No evidence of a meniscal or ligament tear. 3. No joint effusion. DATA REPOSITORY:
== END ==
PROVIDERS: PCP Nurse Practitioner Family; Visit Provider Nurse Practitioner Family
DX: M25.562 Pain in left knee
CPT/HCPCS: 73721

== ENCOUNTER 2023-11-01 11:16 | Outpatient (RCR) | payer OTHER, SELFPAY ==
[2023-11-01 11:57] LABS: Creatine Kinase 113 U/L (26-192)
[2023-11-01 12:35] LABS: Vitamin B12 606 pg/mL (193-986)
[2023-11-01 18:03] LABS: Thyroglobulin Antibody <15 U/mL (<=60); Thyroperoxidase Antibody 36 U/mL (<=60)
[2023-11-01 18:42] LABS: Hepatitis C Ab w Rflx HCV PCR Negative (Negative)
[2023-11-02 10:17] LABS: C3 Complement 102 mg/dL (81-157); C4 Complement 18 mg/dL (13-39)
[2023-11-02 13:44] LABS: RNP Ab, IgG <6.0 CU (<20.0); Ro60 Ab, IgG <7.0 CU (<20.0); SS-A/Ro, IgG <2.3 CU (<20.0); SS-B (La) Ab, IgG <3.3 CU (<20.0); Sm (Smith) Ab, IgG <8.0 CU (<20.0)
== END 2023-11-16 23:59 | disposition home or self-care (01) ==
LOC: INF 11:16
PROVIDERS: PCP Nurse Practitioner Family; Visit Provider Internal Medicine Rheumatology
DX: R29.6 Repeated falls (principal); M25.541 Pain in joints of right hand; M25.542 Pain in joints of left hand; R76.8 Other specified abnormal immunological findings in serum
CPT/HCPCS: 36415; 82550; 86376; 86803; 82607; 86160; 86235

== ENCOUNTER → 2023-11-30 03:46 | Outpatient (CLI) | payer OTHER, SELFPAY ==
--- NOTE | 2023-11-30 | DI.MRI_ITS ---
Exam(s) MR UPPER JOINT RT WO EXAM: MR UPPER JOINT RT WO CLINICAL HISTORY: M25.531,G89.29,719.43,338.29Wrist pain,chronic RT,medially at base Rt 10/21. TECHNIQUE: Multiplanar multisequence MRI was performed. COMPARISON: None. FINDINGS: BONES: There is no fracture or contusion pattern. Small subchondral cysts are seen at the proximal ca pitate and lunate. JOINTS: The radiocarpal joint is unremarkable. The carpal joints are unremarkable. There is a small cyst at the anterior aspect of the radiocarpal joint which may represent a small ganglion. There is also a small cyst seen along the anterior aspect of the ulnar styloid process which may represent a ganglion. It measures 1.4 x 3.2 by 6 mm. There is mild adjacent edema. TENDONS: Flexors: Unremarkable. Extensors: Unremarkable. MUSCLES: Unremarkable. MEDIAN NERVE: Unremarkable on this noncontrast examination. ULNAR NERVE: Unremarkable on this noncontrast examination. SOFT TISSUES: Unremarkable. LIGAMENTS: Unremarkable. TRIANGULAR FIBROCARTILAGE: Unremarkable. OTHER: IMPRESSION: 1. No evidence of a tendon tear or soft tissue solid mass. 2. Small ganglion in the medial aspect of the wrist overlying the ulnar styloid process. 3. No evidence of an occult fracture. 4. The joint spaces appear well maintained. 5. Small ganglion cyst along the anterior aspect of the radiocarpal joint. DATA REPOSITORY:
== END ==
PROVIDERS: PCP Nurse Practitioner Family; Visit Provider Internal Medicine Rheumatology
DX: M25.531 Pain in right wrist (principal); G89.29 Other chronic pain
CPT/HCPCS: 73221

== ENCOUNTER → 2023-11-30 03:48 | Outpatient (CLI) | payer OTHER, SELFPAY ==
--- NOTE | 2023-11-30 | DI.RAD_ITS ---
Exam(s) XR HIP RT COMPLETE AP PELVIS EXAM: XR HIP RT COMPLETE AP PELVIS CLINICAL HISTORY: RT hip pain , failure to respond to conservative care. TECHNIQUE: 2D digital imaging was performed. COMPARISON: CR XR HIP RT COMPLETE AP PELVIS from 09/19/2021 FINDINGS: Two views. No evidence of pelvic nor hip fracture. No hip joint space narrowing. Benign bone island noted in t he right iliac bone above the acetabulum is unchanged from September 2021. Additional lateral view of the right hip does not reveal joint space narrowing nor osteophytes. IMPRESSION: No significant osseous findings in the hips. Stable sclerotic density in the right iliac bone above the acetabulum measuring approximately 1.3 x 1 .0 cm, unchanged from September 2021 and therefore most probably a benign bone island. DATA REPOSITORY: RADIATION DOSE DELIVERED:
== END ==
PROVIDERS: PCP Nurse Practitioner Family; Visit Provider Chiropractor
DX: M25.531 Pain in right wrist (principal); M25.551 Pain in right hip
CPT/HCPCS: 73502

== ENCOUNTER 2024-04-17 06:06 | Day surgery (SDC) | payer OTHER, SELFPAY ==
--- NOTE | 2024-04-16 11:03 | W.PM.DSUDISC ---
Date of service: 04/17/24 Time of Service: 08:22 Discharge Plan Disposition Patient Disposition: Home Condition: Good Discharge Details Reason For Visit: screening colonoscopy and EGD Attending Provider: Khris Mix Primary Care Provider: Katya Graham Home Meds and New Rx's Prescriptions: Continued multivitamin Tablet 1 tab PO DAILY Xiidra 5 % dropperette 1 drp ophthalmic (eye) BID Rx Instructions: administer approximately 12 hours apart (DME) Left knee Cho Pat strap See Rx Instructions .Route .MEDSUPPLY Qty: 1 0RF Rx Instructions: As directed - to aid in patellar tracking. omeprazole 20 mg capsule,delayed release(DR/EC) 20 mg PO DAILY PRN (Reason: gerd) Qty: 90 3RF hydroxychloroquine [Plaquenil] 200 mg tablet 200 mg PO DAILY ascorbic acid (vitamin C) 500 mg capsule 500 mg PO DAILY turmeric root extract 500 mg capsule 500 mg PO DAILY cholecalciferol (vitamin D3) [Vitamin D3] 2,000 UNIT capsule 1,000 unit PO DAILY lidocaine 5 % adhesive patch,medicated 1 patch topical Q24H PRN (Reason: pain) Qty: 30 1RF Rx Instructions: leave on most painful area for up to 12 hrs diclofenac sodium 1 % gel 2 g topical QID PRN (Reason: arthritis pain) Qty: 300 4RF Rx Instructions: Apply to affected joint four times a day as needed for pain peg 3350-electrolytes [Golytely] 236-22.74-6.74 -5.86 gram recon soln 240 ml PO Q10M Qty: 240 0RF Rx Instructions: until fecal effluent is clear No Action estradiol 0.01 % (0.1 mg/gram) cream VAGINAL Discharge Instructions Additional Instructions: Dora, we were able to complete your upper endoscopy and lower endoscopy today, and I hope you are generally comfortable during the procedure. I am sorry for the inconvenience of the bite block, sometimes those can be quite uncomfortable for patients. With regards to the actual endoscopy procedures. Generally everything looks very good. There is a little bit of some change around your GE junction that could be consistent with Larry's esophagus, which typically occurs after longstanding gastroesophageal reflux disease. I did some biopsies of this, we can see what those results are before making any big changes. Your colonoscopy is totally normal, with no evidence of tumors, polyps, or anything worrisome. I will give you a call once I have the results of the biopsies, and we can see if any adjustments to your medication are appropriate at that point. 1. If tolerated, consume a soft, low fiber diet for 1-2 days. 2[address] Do not drive, drink alcohol, operate machinery, make critical decisions, or do activities that require coordination or balance for 24 hours. 3. Because air was put into your colon during the procedure, expelling air from your rectum (passing gas or farting) is normal. 4. You may not have a bowel movement for 1-3 days because of the colonoscopy prep. This is normal. 5. You may experience a sore throat for 24 to 48 hours. You may use throat lozenges or gargle with warm salt water to relieve the discomfort. 6. Because air was put into your stomach during the procedure, you may experience some belching. 7. Go directly to the emergency room if you notice any of the following: Develop chills (warm to touch), or if you have a thermometer and your temperature is above 101 Difficulty breathing or difficultly swallowing Persistent vomiting Severe abdominal pain, other than gas cramps Severe chest pain Black, tarry stools Any bleeding ? exceeding one tablespoon 8. Call your physician if the site where your intravenous was started becomes red, swollen, painful, and warm to touch. 9. Your physician has reviewed your pre-procedure medications. Please continue to take those medications as previously ordered. You will be given specific information/education regarding any changes to your medications before leaving. Activity:: Activity as Tolerated Diet:: As Tolerated Discharge Orders Discharge Orders: Discharge Order (Routine); Ordered 04/16/24 Ordered By: Khris Mix DS: Diagnosis Discharge Diagnosis (1) Encounter for screening colonoscopy: Status: Acute Asessment and Plan: Generally negative appearing EGD and colonoscopy today. I did do some biopsies of the GE junction, we will follow-up on those to see whether or not they are more characteristic of Larry's esophagus
--- NOTE | 2024-04-16 11:05 | HPE_ITS ---
Assessment and Plan Assessment and plan (1) Encounter for screening colonoscopy: Status: Acute Assessment and plan: We reviewed the plan for an EGD and colonoscopy today, nor had a chance to ask any new questions that she might have. Without any significant changes, I think it is reasonable to proceed as planned History of Present Illness History of Present Illness Chief Complaint: screening colonoscopy Narrative: Is very nice to meet Dora in the office. She is 58 years old, and she is here for a colonoscopy, and consideration of EGD. She is tells me she has had longstanding nonspecific gastrointestinal complaints, that typically sounds like longstanding gastroesophageal reflux disease, as well as intermittent constipation and loose stools. She carries diagnosis of inflammatory bowel disease she says she underwent colonoscopy and EGD about 10 years ago. To the best of her knowledge they were normal. However she, she continues to have postprandial dysphagia that describes as coughing, and difficulty clearing secretions from her esophagus. She denies any hematemesis. She also denies any hematochezia or melena. Incidentally, she complains of a lump in the right groin. Past surgical history is most significant for laparoscopic mesh sacrocolpopexy as well as posterior culpoperhnial herniorrhaphy. Since her last office visit, there have been no major changes to the interval history or physical exam. [facility] All Active Problems Encounter for screening colonoscopy (Acute) Bilateral inguinal hernia (Acute) Connective tissue disease, undifferentiated (Chronic) Major depressive disorder, recurrent (Chronic) Generalized anxiety disorder (Chronic) ADHD (attention deficit hyperactivity disorder) (Chronic) Irritable bowel syndrome (Chronic) Dysphagia (Chronic) Bilateral inguinal hernia without obstruction or gangrene (Chronic) Hyperlipidemia (Chronic) Dyspareunia (Chronic) Osteoarthritis (Chronic) Chronic right hip pain (Chronic) Chronic pain of left knee (Chronic) Traumatic arthritis of left knee (Chronic) Bilateral carpal tunnel syndrome (Chronic) Arthritis of right wrist (Chronic) Ganglion cyst of volar aspect of right wrist (Chronic) Difficulty defecating (Chronic) Medical History Essential hypertension Pelvic organ prolapse quantification stage 2 cystocele Surgical History S/P sacrocolpopexy (08/17/23) Lap mesh sacralcolpopexy, posterior colpoperineorrhaphy H/O cystostomy (09/10/21) At the time of LAVH. Treated with Huerta catheter to gravity drainage x1 week. History of anterior colporrhaphy (09/10/21) S/P BSO (bilateral salpingo-oophorectomy) (09/10/21) S/P laparoscopic assisted vaginal hysterectomy (LAVH) (09/10/21) History of augmentation of both breasts H/O dilation and curettage (~2000) Family History (Updated 03/16/24 @ 15:09 by Katya Graham NP) Mother Hyperlipidemia Cancer of parotid gland Hypertension Depression Father Hyperlipidemia Hypertension Type 2 diabetes mellitus Brother No problems noted. Brother No problems noted. Brother No problems noted. Son Type 1 diabetes mellitus Son No problems noted. Son No problems noted. Daughter No problems noted. Paternal Grandfather No problems noted. Paternal Grandmother Diabetes Stroke Maternal Grandfather No problems noted. Maternal Grandmother Type 2 diabetes mellitus Social History Smoking/Tobacco Use Status: Never Smoking risk assessment performed?: Yes Alcohol Intake: current Alcohol Intake frequency: a few times a month Drug use: Never Substance use type: does not use Household members: spouse and children Housing: house Number of Children: 4 Communication Needs: None Do you need help understanding health information?: Never current occupation: RN outpatient clinic [employer] Pets and animals: Yes Pets and animals: dog(s) Sexually active: Yes Do you think of yourself as: straight/heterosexual Current gender identity: female What is your relationship status?: How often do you talk on the phone with friends or family?: once per week How often do you get together with friends or relatives?: once per week How often do you attend anglican or episcopal services?: 4 or more times per year Do you belong to any clubs or organized social groups?: no Panel score (0-1 are the most socially isolated patients): 2 What type of physical activity do you participate in: walking and other Details: elliptical Duration: 60-90 minutes/day Frequency: 3-4 times per week Cyndi/Pentecostal: Caodaism Special cyndi needs: No Seatbelt use: always Helmet use: Yes Helmet use: always Do you feel safe at home: Yes Do you feel safe in your relationship?: Yes Female Reproductive History Menstrual control method: none Menopause type: natural Date of menopause: 02/10/18 History History 7 Para Hx # Term Pregnancies 4 Multiple births Hx # Pregnancies Ectopic pregnancies AB induced Hx Number of Living Children AB spontaneous Meds Allergies and Home Medications Allergies Allergy/AdvReac Type Severity Reaction Status Date / Time amitriptyline Allergy Intermediate Itching Verified 04/17/24 06:40 clonazepam (From Klonopin) Allergy Intermediate Skin Rash Verified 04/17/24 06:40 Sulfa (Sulfonamide Allergy Intermediate HIVES, RASH Verified 04/17/24 06:40 Antibiotics) metoprolol AdvReac Intermediate dizziness Verified 04/17/24 06:40 steriod Allergy Intermediate Hives Uncoded 04/17/24 06:40 Home Medications ?Medication ?Instructions ?Recorded ?Confirmed ?Type Vitamin D3 50 mcg (2,000 unit) 1,000 unit PO DAILY 10/07/12 04/17/24 History capsule (cholecalciferol (vitamin D3)) multivitamin 1 tab PO DAILY 03/31/21 04/17/24 History lidocaine 5 % topical patch 1 patch topical Q24H PRN pain #30 08/05/21 04/17/24 Rx ea Left knee Cho Pat strap #1 ea 03/12/23 03/16/24 Rx lifitegrast 5 % eye drops in a 1 drp ophthalmic (eye) BID 03/12/23 04/17/24 History dropperette (Xiidra) hydroxychloroquine 200 mg tablet 200 mg PO DAILY 06/17/23 04/17/24 History (Plaquenil) diclofenac sodium 1 % topical gel 2 g topical QID PRN arthritis pain 10/26/23 04/17/24 Rx #300 grams ascorbic acid (vitamin C) 500 mg 500 mg PO DAILY 01/04/24 04/17/24 History capsule turmeric root extract 500 mg 500 mg PO DAILY 01/04/24 04/17/24 History capsule peg 3350-electrolytes 236 240 ml PO Q10M #240 mL 03/02/24 04/17/24 Rx gram-22.74 gram-6.74 gram-5.86 gram solution (Golytely) omeprazole 20 mg capsule,delayed 20 mg PO DAILY PRN gerd #90 caps 03/16/24 04/17/24 Rx release estradiol 0.01% (0.1 mg/gram) vaginal 04/17/24 History vaginal cream Exam Const General: cooperative, healthy appearing and not in acute distress Neck Neck: normal visual inspection, no lymphadenopathy and supple Resp Effort & Inspection: normal respiratory effort Auscultation: clear to auscultation bilaterally Cardio Jugular venous pressure: no JVD Rate: regular rate Rhythm: regular rhythm Heart Sounds: S1 normal and S2 normal GI Inspection: normal to inspection Palpation: soft, no guarding, no hernias and nontender Percussion: normal to percussion Auscultation: normal bowel sounds Neuro General: patient alert, patient awake and patient oriented x3 Psych Appearance: grossly normal
--- NOTE | 2024-04-16 11:06 | W.COLOREPORT ---
Date of service: 04/17/24 Time of Service: 08:24 Colonoscopy Report Date of procedure: 04/17/24 Pre-op diagnosis general: screening colonoscopy and EGD Post-op diagnosis procedure note: other (Normal-appearing EGD and colonoscopy) Procedure: EGD with biopsies and colonoscopy Surgeon: Khris Mix Anesthesia Type: General:No Airway Estimated blood loss (mL): 5 Pathology: other (Random biopsies of gastric antrum and body to rule out Helicobacter pylori, biopsies of GE junction to rule out Larry's) Complications: None Disposition: same day Indications: She is 58 years old, and she is here for a colonoscopy, and consideration of EGD. She is tells me she has had longstanding nonspecific gastrointestinal complaints, that typically sounds like longstanding gastroesophageal reflux disease, as well as intermittent constipation and loose stools. She carries diagnosis of inflammatory bowel disease she says she underwent colonoscopy and EGD about 10 years ago. To the best of her knowledge they were normal. However she, she continues to have postprandial dysphagia that describes as coughing, and difficulty clearing secretions from her esophagus. She denies any hematemesis. She also denies any hematochezia or melena. Incidentally, she complains of a lump in the right groin. Past surgical history is most significant for laparoscopic mesh sacrocolpopexy as well as posterior culpoperhnial herniorrhaphy. Prep: Miralax/Dulcolax Procedure Start Time: 07:37 Procedure End Time: 08:06 Retraction Time: 7 Findings: Maybe a tiny focus of Larry's esophagus on the EGD, otherwise everything looks normal Procedure Description: After the initiation of monitored anesthetic care, and with the assistance of a bite block, I advanced a standard gastroscope through the mouth past the hypopharynx and into the esophagus.? Under the direct vision of the scope, I advanced down the towards into the stomach.? The upper, mid, and lower esophagus were all normal-appearing. I did not see any evidence of stricture. The Z-line is generally regular, with minimal variability, however there is a tiny focus of vascularity appreciated with narrowband imaging that could be consistent with Larry's esophagus. The Z-line and GE junction measured about 36 cm from the incisors. I advanced down into the stomach and insufflated into the rugae were obliterated. The stomach tissue was all normal and healthy. I saw no ulceration or irritation. I advanced down around the incisura angularis, through the pylorus, into the duodenum. This also appeared normal. I then brought the camera back up into the stomach and perform some random biopsies of the gastric antrum and body to rule out Helicobacter pylori given the patient's dyspepsia. Biopsies were performed with cold forceps without any issues. The camera was then brought back up to the Z-line, and biopsies of the aforementioned location were performed with cold forceps. There was minimal bleeding. I then emptied the stomach, brought the camera out along the length of the esophagus 1 last time. No other abnormalities were appreciated. We moved more into the left lateral decubitus position, I began by performing an external anorectal exam.? Perineum and skin were normal, as was the anal verge.? There was no evidence of external hemorrhoids.? Next, I performed a digital rectal exam.? I did not appreciate any abnormal findings.? Next, I advanced a colonoscope into the rectal vault.? I performed retroflexion.? This appeared normal.? Using insufflation, I then advanced the colonoscope beyond the rectal folds and into the sigmoid colon before advancing towards the cecum.? The scope was noted to be in the cecum by identification of the ileocecal valve and appendiceal orifice.? I then began withdrawing the colonoscope using repeated irrigation as necessary for full evaluation of the colonic mucosa. ?Once the scope was withdrawn to the level of the rectum, great care was taken to examine portions of the rectal folds.? Finally, the scope was withdrawn and the patient was brought to the same-day surgery recovery unit as the anesthetic wore off. Still no evidence of any tumors, polyps, or any other abnormalities. ?The findings and instructions were shared with the patient prior to discharge. [place] Bowel Prep [place] Bowel Prep Right Colon: 2 Left Colon: 3 Transverse Colon: 3 Total Score: 8
[2024-04-17 06:15] VITALS: BP 146/85; PULSE 67; RESP 16; TEMP 36.5; O2SAT 100
[2024-04-17] MEDS: Lactated Ringers 1,000 ML 80 ML IV (07:05)
--- NOTE | 2024-04-17 07:07 | ANES.PREOP_ITS ---
General Info Date of Service Date Performed: 04/17/24 Height: 5 ft 2.75 in Weight: 58.967 kg Body Mass Index (BMI): 23.2 Surgical Procedure: Operation Date: 04/17/24 07:35 Proposed Procedure Side Surgeon p Colonoscopy/Gastroscopy Khris Mix MD Meds Allergies and Home Medications Allergies Allergy/AdvReac Type Severity Reaction Status Date / Time amitriptyline Allergy Intermediate Itching Verified 04/17/24 06:40 clonazepam (From Klonopin) Allergy Intermediate Skin Rash Verified 04/17/24 06:40 Sulfa (Sulfonamide Allergy Intermediate HIVES, RASH Verified 04/17/24 06:40 Antibiotics) metoprolol AdvReac Intermediate dizziness Verified 04/17/24 06:40 steriod Allergy Intermediate Hives Uncoded 04/17/24 06:40 Home Medication ?Medication ?Instructions ?Recorded Vitamin D3 50 mcg (2,000 unit) 1,000 unit PO DAILY 10/07/12 capsule (cholecalciferol (vitamin D3)) multivitamin 1 tab PO DAILY 03/31/21 lidocaine 5 % topical patch 1 patch topical Q24H PRN pain #30 08/05/21 ea Left knee Cho Pat strap #1 ea 03/12/23 lifitegrast 5 % eye drops in a 1 drp ophthalmic (eye) BID 03/12/23 dropperette (Xiidra) hydroxychloroquine 200 mg tablet 200 mg PO DAILY 06/17/23 (Plaquenil) diclofenac sodium 1 % topical gel 2 g topical QID PRN arthritis pain 10/26/23 #300 grams ascorbic acid (vitamin C) 500 mg 500 mg PO DAILY 01/04/24 capsule turmeric root extract 500 mg 500 mg PO DAILY 01/04/24 capsule peg 3350-electrolytes 236 240 ml PO Q10M #240 mL 03/02/24 gram-22.74 gram-6.74 gram-5.86 gram solution (Golytely) omeprazole 20 mg capsule,delayed 20 mg PO DAILY PRN gerd #90 caps 03/16/24 release estradiol 0.01% (0.1 mg/gram) vaginal 04/17/24 vaginal cream Current Visit Medications: Current Medications Generic Name Dose Route Start Last Admin Trade Name Freq PRN Reason Stop Dose Admin Ringer's Solution 1,000 mls @ 80 mls/hr 04/17/24 06:00 IV 04/17/24 23:59 INFUSION [facility] IV Miscellaneous Supplies 1 each 04/17/24 06:00 Iv Access IV 04/17/24 23:59 DIRECTED CORNELL Ondansetron HCl 4 mg 04/16/24 11:07 Ondansetron 4 Mg/2 Ml Vial IVP 05/16/24 11:06 Q4H PRN PRN Nausea / Vomiting Sodium Chloride 0 ml 04/17/24 06:00 Normal Saline Flush 10 Ml Syr IV 04/17/24 23:59 PRN PRN Sodium Chloride 0 ml 04/17/24 06:00 Normal Saline 10 Ml Vial IJ 04/17/24 23:59 DIRECTED PRN Sterile Water 0 ml 04/17/24 06:00 Water,Injection,Sterile 10 Ml Vial IJ 04/17/24 23:59 DIRECTED PRN PFSH Active Problems Active Problems: Problem Status Onset Code Encounter for screening colonoscopy Acute Z12.11 Bilateral inguinal hernia Acute K40.20 Connective tissue disease, 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 Major depressive disorder, recurrent Chronic F33.9 Generalized anxiety disorder Chronic F41.1 ADHD (attention deficit hyperactivity disorder) Chronic F90.9 Irritable bowel syndrome Chronic K58.9 Dysphagia Chronic R13.10 Bilateral inguinal hernia without obstruction or gangrene Chronic K40.20 Hyperlipidemia Chronic E78.5 Dyspareunia Chronic Osteoarthritis Chronic M19.90 Chronic right hip pain Chronic M25.551, G89.29 Chronic pain of left knee Chronic M25.562, G89.29 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 Treated with Huerta catheter to gravity drainage x1 week. History of anterior colporrhaphy (09/10/21) S/P BSO (bilateral salpingo-oophorectomy) (09/10/21) S/P laparoscopic assisted vaginal hysterectomy (LAVH) (09/10/21) History of augmentation of both breasts H/O dilation and curettage (~2000) Tobacco Smoking/Tobacco Use Status: Never Passive smoking exposure: No Alcohol Alcohol Intake: current Alcohol intake frequency: a few times a month Substance Use Substance use: Never Substance use type: does not use Prental History History 7 Para Hx # Term Pregnancies 4 Multiple births Hx # Pregnancies Ectopic pregnancies AB induced Hx Number of Living Children AB spontaneous Vital Signs and Lab Results Vital Signs Most Recent Vital Signs in EMR: Most Recent Vital Signs Temp Pulse Resp BP Pulse Ox 36.5 C 67 16 146/85 H 100 04/17/24 06:15 04/17/24 06:15 04/17/24 06:15 04/17/24 06:15 04/17/24 06:15 Lab Results Blood Type / Crossmatch: No Data to Display Complete Blood Count: No Data to Display Complete Metabolic Panel: No Data to Display Liver Function Panel: No Data to Display Coagulation Panel: No Data to Display Cardiac Panel: No Data to Display Arterial Blood Gas: No Data to Display Venous Blood Gas: No Data to Display Pancreas Panel: No Data to Display Thyroid Panel: No Data to Display Infectious Disease: No Data to Display Blood Cultures: No Data to Display Toxicology Panel: No Data to Display Imaging and Studies Imaging and Studies Study information below may be from another EMR and interpreted by another provider. Please see original notes in EMR for more complete details. EKG Summary: 07/29/22: Exam: Resting ECG Reason for Exam: Dizziness/nausea Patient Location: O HR:65 bpm ECG Measurements Heart Rate 65 AXIS AK 129 P 62 QRSd 96 QRS 76 QT 417 T74 QTc 434 Conclusion Sinus rhythm...normal P axis, V-rate 50- 99 Normal Electrocardiogram Stress Test Summary: Impressions: Normal study after maximal exercise. Summary: 1. Myocardial perfusion imaging: No myocardial perfusion defects noted. 2. The calculated left ventricular ejection fraction after stress: 59%. LV global systolic function is normal. No left ventricular regional motion abnormality. 3. Stress ECG conclusions: The stress ECG is negative. Del Real treadmill score: 8. This score predicts a low risk of cardiac events. 4. Stress: The target heart rate was achieved. There is a normal resting blood pressure with an appropriate response to stress. The patient experienced no chest pain during stress. Exercise capacity is average for age. 5. Treadmill exercise testing was performed using the Sheldon protocol. The patient exercised for 8 min 8 sec, to protocol stage 3, to a maximal work rate of 10.2mets. Exercise was terminated due to achievement of target heart rate. 01/2019 Echocardiogram Summary: Conclusion Normal left ventricular wall thickness and chamber size. Estimated ejection fraction is 60%. There are no segmental wall motion abnormalities Normal right ventricular size and systolic function Both atria are normal in size There is no significant valvular disease 03/2021 Anesthesia Assessment and Plan Anesthesia History Personal History: No History of Anesthesia Complications Family History: No Family History of Anesthesia Complications Exercise Tolerance Exercise Tolerance: Metabolic Equivalents>4 Pertinent Negatives Pertinent Negatives: No Symptoms of GERD Cardiac & Pulmonary Exam Cardiac Exam: Normal S1/S2 Heart Sounds Pulmonary Exam: Clear Bilateral Breath Sounds Implantable Cardiac Device Does patient have a Pacemaker or an ICD?: No Airway Exam Known Difficult Airway: No Mallampati Class: 2 Mouth Opening: Normal (> 3cm) Thyromental Distance: Less than 3 cm Neck Range of Motion: Full ROM Neck Circumference: Normal Teeth Condition: Normal Dentition ASA Classification ASA Score: ASA 2 Emergency Case?: No NPO Status NPO Status: NPO Clears >2 hours, Solids >8 hours Anesthesia Plan Resuscitation Status: Full Code Anesthesia Technique: General Anesthesia Airway Planned: Natural Airway Monitors Used: Standard Monitors
[2024-04-17 07:21] VITALS: BMI 23.2
--- NOTE | 2024-04-17 07:40 | STOM_PTH ---
PATIENT: Siri Coleman LOC: [facility] U#:[id number] AGE/SX: 59/F ROOM: RE04/17/[address]: Khris Mix MD : [id number] BED: DIS: 04/17/2024 SPEC #: [id number] RECD: 04/17/24 12:47 STATUS: RAFAEL RE #: [id number] GEOVANNA: 04/17/24 07:[address]: Khris Mix DEPT: Surgical Specimen RECD BY: Bobbi Langley ENTERED: 04/17/24 12:49 SP TYPE: STOMACH OTHR DR: KATHY Araujo Tissues: 1 - STOMACH BIOPSY 2 - STOMACH BIOPSY 3 - ESOPHAGUS BIOPSY Procedures: GROSS AND MICRO LEVEL 4 Comments: [id number]
[2024-04-17 08:10] VITALS: BP 109/84; PULSE 67; RESP 16; TEMP 36.1; O2SAT 100
[2024-04-17 08:45] VITALS: BP 129/78; PULSE 62; RESP 16; TEMP 36.1; O2SAT 99
--- NOTE | 2024-04-17 09:33 | W.ANESPOSTOP ---
Postoperative Evaluation Date, Time and Location Date Performed: 04/17/24 Time Performed: 08:15 Patient Location: Day Surgery Unit Vital Signs Most Recent Imported Vital Signs: Most Recent Vital Signs Temp Pulse Resp BP Pulse Ox 36.1 C L 62 16 129/78 99 04/17/24 08:45 04/17/24 08:45 04/17/24 08:45 04/17/24 08:45 04/17/24 08:45 Pain Score Most Recent Pain Score: Most Recent Pain Score Pain Level 0 04/17/24 08:45 Assessment Mental Status: Awake (Alert & Oriented to Patient Baseline) Airway and Respiratory Function: Patent airway with normal (patient baseline) respiratory exam Cardiovascular Function: Hemodynamically Stable Hydration Status: Adequately Hydrated Nausea & Vomiting: No Nausea or Vomiting Pain: Pt. Denies Any Pain Peripheral Nerve Block: Patient did not receive a nerve block Postoperative Comments:: Discussed with patient some slight bleeding on gums on bottom, likely from bite block during EGD.
== END 2024-04-17 08:55 | disposition home or self-care (01) ==
LOC: SUR 06:07
PROVIDERS: PCP Nurse Practitioner Family; Visit Provider Surgery
PROC: (CPT 45378; principal; 2024-04-17 07:30)
DX: Z12.11 Encounter for screening for malignant neoplasm of colon (principal); R10.13 Epigastric pain; K29.70 Gastritis, unspecified, without bleeding
CPT/HCPCS: 45378; 43239; 88305; J2704

== ENCOUNTER 2024-05-03 02:20 | Outpatient (CLI) | payer OTHER, SELFPAY ==
--- NOTE | 2024-05-03 07:15 | DI.MAMMO_ITS ---
Exam(s) MG MAMMO SCREENING 60 MIN DUR EXAM: MG MAMMO SCREENING 60 MIN DUR CLINICAL HISTORY: breast cancer screening,implants, z12.39 TECHNIQUE: Bilateral full field digital CC and MLO mammographic images were obtained with 3D tomosyn thesis and utilizing computer aided detection (CAD). COMPARISON: Available for comparison. FINDINGS: The patient has stable bilateral breast implants. Masses/Architectural Distortion: None seen. Microcalcifications: No suspicious pleomorphic-type are seen. Skin Thickening/Nipple Retraction: None. IMPRESSION: 1. No significant interval change with no specific features of malignancy noted. 2. Unless there is more urgent need, screening mammography is recommended, as per [employer] guidelines. BI-RADS Category 1 - Negative Breast Density - Category B - Scattered areas of fibroglandular density Breast density category C or D implies that the patient has dense breast tissue. Dense breast tissue is very common and is not abnormal but dense breast tissue can make it harder to find cancer on a ma mmogram. Also, dense breast tissue may increase their breast cancer risk. This information about the result of the mammogram report was provided to the patient to raise their awareness. Use this report when you speak with the patient about their risks for breast cancer, which includes their family hist ory. At that time, you may recommend for more screening tests (Ultrasound or MRI) as they might be us eful based on their risk. A negative radiographic report should not delay biopsy if a dominant or clinically suspicious mass is present. Up to ten percent of cancers are not identified on mammography. A negative report may reinforce clinical impression. Adenosis and dense breasts may obscure an underlying neoplasm. False positive reports average 6 to 10%. Patient will receive a letter notifying them of these results.
== END 2024-05-03 02:40 ==
LOC: DI 02:20
PROVIDERS: PCP Nurse Practitioner Family; Visit Provider Nurse Practitioner Family
DX: Z12.31 Encounter for screening mammogram for malignant neoplasm of breast (principal)
CPT/HCPCS: 77063; 77067

== ENCOUNTER 2024-05-31 09:19 | Day surgery (SDC) | payer OTHER, SELFPAY ==
--- NOTE | 2024-05-30 18:00 | W.PM.DSUDISC ---
Date of service: 05/31/24 Time of Service: 12:23 Discharge Plan Disposition Patient Disposition: Home Condition: Good Discharge Details Reason For Visit: Bilateral inguinal hernia repair Attending Provider: Khris Mix Primary Care Provider: Katya Graham Home Meds and New Rx's Prescriptions: Continued multivitamin Tablet 1 tab PO DAILY Xiidra 5 % dropperette 1 drp ophthalmic (eye) BID Rx Instructions: administer approximately 12 hours apart (DME) Left knee Cho Pat strap See Rx Instructions .Route .MEDSUPPLY Qty: 1 0RF Rx Instructions: As directed - to aid in patellar tracking. omeprazole 20 mg capsule,delayed release(DR/EC) 20 mg PO DAILY PRN (Reason: gerd) Qty: 90 3RF ascorbic acid (vitamin C) 500 mg capsule 500 mg PO DAILY turmeric root extract 500 mg capsule 500 mg PO DAILY cholecalciferol (vitamin D3) [Vitamin D3] 2,000 UNIT capsule 1,000 unit PO DAILY diclofenac sodium 1 % gel 2 g topical QID PRN (Reason: arthritis pain) Qty: 300 4RF Rx Instructions: Apply to affected joint four times a day as needed for pain estradiol 0.01 % (0.1 mg/gram) cream 1 appful VAGINAL DIRECTED Discharge Instructions Instructions: Groin Hernia Repair (DC) Additional Instructions: Siri, everything went very smoothly in the operating room, and we were able to repair both sides just like we talked about beforehand. Both sides were repaired with mesh implants just like we talked about. Hopefully they will provide durable long-term solution to any bulge or other discomfort. Expect to have some pain in the coming days as the nerve blocks wear off. I did put in a prescription for some tramadol to help with pain if Tylenol and ibuprofen are not enough. Ice packs will also be very helpful. Expect to get some bruising over the area. In fact, it can be quite extensive after hernia repair, so do not be alarmed if you turn black and blue. If the skin starts to turn bright red, or there is any drainage from the incisions that appears turbid or foul-smelling, I would certainly want to know about that. I do not anticipate it, and I expect to make a wonderful recovery. If you have any questions at all, please call. Otherwise, I look forward to seeing you in the office for your follow-up on the . 1. Resume all of your regular medications. 2. Alternate over the counter tylenol and ibuprofen every 6 hours for the first 2 days, then use as needed. Use the prescription for tramadol if needed for more severe pain. 3. Okay to use tylenol and ibuprofen over the counter as needed. 4. Leave bandages in place for 24 hours, then remove. 5. Shower with warm soapy water. Pat dry. Feel free to replace the Band-Aids if your clothing irritates the incisions. 6. No soaking or tub baths until I see you in the office. 7. No heavy lifting until I see you in the office. 8. Call the office (or go directly to the emergency room after hours) if you notice any of the following: Develop chills (warm to touch), or if you have a thermometer and your temperature is above 101 Difficulty breathing or difficultly swallowing Persistent vomiting Any bleeding ? exceeding one tablespoon 9. Call your physician if the site where your intravenous was started becomes red, swollen, painful, and warm to touch. Referrals: Khris Mix MD [ [facility] STAFF PHYSICIAN] - (June 20 at 2:30 PM) Activity:: no heavy lifting Remove Dressings/Wound Care:: 24 hours Shower/Bathe:: 24 hours Diet:: As Tolerated Discharge Orders Discharge Orders: Discharge Order (Routine); Ordered 05/30/24 Ordered By: Khris Mix DS: Diagnosis Discharge Diagnosis (1) Bilateral inguinal hernia: Status: Acute Asessment and Plan: Outpatient postoperative follow-up
--- NOTE | 2024-05-30 18:03 | ROE_ITS ---
Date of service: 05/31/24 Time of Service: 12:28 Operative Note Operative Note DATE OF PROCEDURE: 05/31/24 PRE-OP DIAGNOSIS: Bilateral inguinal hernia PROCEDURE: Open bilateral inguinal hernia repairs with mesh SURGEON: Khris Mix MEDICAL STAFF CREDENTIALING COORDINATOR: Juanita Mcdowell ANESTHESIA TYPE: Local By Surgeon, General LMA/ETT and Other (Inguinal TAP blocks) Refer to Anesthesia Record ESTIMATED BLOOD LOSS: 20 PATHOLOGY: none sent COMPLICATIONS: None Patient was transported to: PACU Patient's condition: stable Implants: Bard PerFix light medium plug and patch bilaterally Indications: Dora is a 59-year-old woman with symptomatic inguinal hernias. She has been experiencing a bulge in the left groin, and bilateral inguinal pain with movements Procedure Description: I began by meeting with Dora in the preoperative area. We reviewed the planned conduct of the operation, and the bilateral nature of her hernias. We then moved back to the operating room, Dora was assisted onto the OR table. She was padded and supported. General anesthesia was induced in the usual fashion. Next, the anesthesia service performed bilateral inguinal nerve blocks with ultrasound guidance. The pelvis and suprapubic area were prepped and draped. The left side was excluded with a surgical towel. I began by making an oblique incision over the right inguinal region. I dissected down through the skin to the deep fascia. Next, I incised the fascia along the length of the inguinal canal to the external ring. I then carefully identified the ilioinguinal nerve and sharply divided it. Once this was complete, I bluntly dissected the shelving edge of the inguinal ligament down towards the pubic tubercle. Here, I encircled the round ligament and cremasterics muscles. The structures were then dissected back towards the internal ring. There was laxity of the internal ring and herniation of preperitoneal fat into the space. It was gently reduced back into the preperitoneal area, and a medium Bard PerFix light plug was affixed in place with a [id number] Prolene stitch imbricating the edge of the internal ring. Next, I buttressed the floor of the inguinal canal using a mass patch that was tailored to fit. It was affixed to the pubic tubercle, then along the shelving edge of the inguinal ligament. The upper edge was affixed to the conjoined tendon and up along the internal oblique fascia as the tails of the mesh were brought back together encircling the origin of the internal ring. Surgical site was irrigated. It was hemostatic. Anterior fascia was then closed with a running Vicryl suture. The site was irrigated again, the superficial layers were closed with interrupted Vicryls prior to closure of the skin with a subcuticular stitch. A Band-Aid was applied, and the site was then excluded from the field with another surgical towel. I turned my attention to the left side, and made an oblique incision over the left inguinal ligament. Dissection of the side was conducted in exactly the same fashion as the right side. After opening the inguinal canal, dissecting all of the specific structures, it was clear that this side was a direct inguinal hernia fairly close to the pubic tubercle. The contents of this were reduced back, and a me dium size plug was used to obliterate this defect. The posterior wall was then reconstructed with a tailored mesh patch in a fashion identical to the right side. The site was also irrigated, and it was also hemostatic. The fascia of the anterior inguinal ligament wall was then closed with running Vicryl suture. It was irrigated again. It was hemostatic. Deep layers were closed with Vicryl stitches similar to the right side, and the skin was also closed with a running subcuticular stitch before Band-Aid was applied. Siri was then allowed awaken from the anesthetic, and transferred to the recovery unit.
[2024-05-31] VITALS (18 sets, daily range): BP systolic 97–179; BP diastolic 67–89; PULSE 53–71; RESP 13–21; TEMP 36–36.5; O2SAT 96–100; BMI 24.0
--- NOTE | 2024-05-31 06:32 | W.ANESPRE ---
General Info Date of Service Date Performed: 05/31/24 Height: 5 ft 2.75 in Weight: 61.008 kg Body Mass Index (BMI): 24.0 Surgical Procedure: Operation Date: 05/31/24 11:25 Proposed Procedure Side Surgeon p Herniorrhaphy Inguinal w/Mesh Bilateral Khris Mix MD Meds Allergies and Home Medications Allergies Allergy/AdvReac Type Severity Reaction Status Date / Time amitriptyline Allergy Intermediate Itching Verified 05/31/24 09:34 clonazepam (From Klonopin) Allergy Intermediate Skin Rash Verified 05/31/24 09:34 Sulfa (Sulfonamide Allergy Intermediate HIVES, RASH Verified 05/31/24 09:34 Antibiotics) metoprolol AdvReac Intermediate dizziness Verified 05/31/24 09:34 steriod Allergy Intermediate Hives Uncoded 05/31/24 09:34 Home Medication ?Medication ?Instructions ?Recorded Vitamin D3 50 mcg (2,000 unit) 1,000 unit PO DAILY 10/07/12 capsule (cholecalciferol (vitamin D3)) multivitamin 1 tab PO DAILY 03/31/21 Left knee Cho Pat strap #1 ea 03/12/23 lifitegrast 5 % eye drops in a 1 drp ophthalmic (eye) BID 03/12/23 dropperette (Xiidra) diclofenac sodium 1 % topical gel 2 g topical QID PRN arthritis pain 10/26/23 #300 grams ascorbic acid (vitamin C) 500 mg 500 mg PO DAILY 01/04/24 capsule turmeric root extract 500 mg 500 mg PO DAILY 01/04/24 capsule omeprazole 20 mg capsule,delayed 20 mg PO DAILY PRN gerd #90 caps 03/16/24 release estradiol 0.01% (0.1 mg/gram) 1 appful vaginal DIRECTED 04/17/24 vaginal cream Current Visit Medications: Current Medications Generic Name Dose Route Start Last Admin Trade Name Freq PRN Reason Stop Dose Admin Acetaminophen 1,000 mg 05/31/24 06:00 Acetaminophen 500 Mg Tab PO 05/31/24 23:59 PREOP CORNELL Celecoxib 200 mg 05/31/24 06:00 Celecoxib 200 Mg Cap PO 05/31/24 23:59 PREOP CORNELL Gabapentin 600 mg 05/31/24 06:00 Gabapentin 300 Mg Cap PO 05/31/24 23:59 PREOP CORNELL Hydromorphone HCl 0.2 mg 05/30/24 18:05 Hydromorphone 1 Mg/Ml Syr IVP 06/04/24 18:04 Q1H PRN PRN Severe Pain Ringer's Solution 1,000 mls @ 80 mls/hr 05/31/24 06:00 IV 05/31/24 23:59 INFUSION CORNELL Cefazolin Sodium/Dextrose 2 gm in 50 mls @ 100 mls/hr 05/31/24 06:00 Ancef Duplex IVPB 05/31/24 23:59 PREOP CORNELL IV Miscellaneous Supplies 1 each 05/31/24 06:00 Iv Access IV 05/31/24 23:59 DIRECTED CORNELL Sodium Chloride 0 ml 05/31/24 06:00 Normal Saline Flush 10 Ml Syr IV 05/31/24 23:59 PRN PRN Sodium Chloride 0 ml 05/31/24 06:00 Normal Saline 10 Ml Vial IJ 05/31/24 23:59 DIRECTED PRN Sterile Water 0 ml 05/31/24 06:00 Water,Injection,Sterile 10 Ml Vial IJ 05/31/24 23:59 DIRECTED PRN Tramadol HCl 50 mg 05/30/24 18:05 Tramadol 50 Mg Tab PO 06/04/24 18:04 Q6H PRN PRN Moderate Pain PFSH Active Problems Active Problems: Problem Status Onset Code Encounter for screening colonoscopy Acute Z12.11 Bilateral inguinal hernia Acute K40.20 Connective tissue disease, 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 Major depressive disorder, recurrent Chronic F33.9 Generalized anxiety disorder Chronic F41.1 ADHD (attention deficit hyperactivity disorder) Chronic F90.9 Irritable bowel syndrome Chronic K58.9 Dysphagia Chronic R13.10 Bilateral inguinal hernia without obstruction or gangrene Chronic K40.20 Hyperlipidemia Chronic E78.5 Dyspareunia Chronic Osteoarthritis Chronic M19.90 Chronic right hip pain Chronic M25.551, G89.29 Chronic pain of left knee Chronic M25.562, G89.29 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 Treated with Huerta catheter to gravity drainage x1 week. History of anterior colporrhaphy (09/10/21) S/P BSO (bilateral salpingo-oophorectomy) (09/10/21) S/P laparoscopic assisted vaginal hysterectomy (LAVH) (09/10/21) History of augmentation of both breasts H/O dilation and curettage (~2000) Tobacco Smoking/Tobacco Use Status: Never Passive smoking exposure: No Alcohol Alcohol Intake: current Alcohol intake frequency: a few times a month Substance Use Substance use: Never Substance use type: does not use Prental History History 7 Para Hx # Term Pregnancies 4 Multiple births Hx # Pregnancies Ectopic pregnancies AB induced Hx Number of Living Children AB spontaneous Vital Signs and Lab Results Lab Results Blood Type / Crossmatch: No Data to Display Complete Blood Count: No Data to Display Complete Metabolic Panel: No Data to Display Liver Function Panel: No Data to Display Coagulation Panel: No Data to Display Cardiac Panel: No Data to Display Arterial Blood Gas: No Data to Display Venous Blood Gas: No Data to Display Pancreas Panel: No Data to Display Thyroid Panel: No Data to Display Infectious Disease: No Data to Display Blood Cultures: No Data to Display Toxicology Panel: No Data to Display Imaging and Studies Imaging and Studies Study information below may be from another EMR and interpreted by another provider. Please see original notes in EMR for more complete details. EKG Summary: 07/29/22: Exam: Resting ECG Reason for Exam: Dizziness/nausea Patient Location: O HR:65 bpm ECG Measurements Heart Rate [address] 129 P 62 QRSd 96 QRS 76 QT 417 T74 QTc 434 Conclusion Sinus rhythm...normal P axis, V-rate 50- 99 Normal Electrocardiogram Stress Test Summary: Impressions: Normal study after maximal exercise. Summary: 1. Myocardial perfusion imaging: No myocardial perfusion defects noted. 2. The calculated left ventricular ejection fraction after stress: 59%. LV global systolic function is normal. No left ventricular regional motion abnormality. 3. Stress ECG conclusions: The stress ECG is negative. [place] Real treadmill score: 8. This score predicts a low risk of cardiac events. 4. Stress: The target heart rate was achieved. There is a normal resting blood pressure with an appropriate response to stress. The patient experienced no chest pain during stress. Exercise capacity is average for age. 5. Treadmill exercise testing was performed using the Sheldon protocol. The patient exercised for 8 min 8 sec, to protocol stage 3, to a maximal work rate of 10.2mets. Exercise was terminated due to achievement of target heart rate. 01/2019 Echocardiogram Summary: Conclusion Normal left ventricular wall thickness and chamber size. Estimated ejection fraction is 60%. There are no segmental wall motion abnormalities Normal right ventricular size and systolic function Both atria are normal in size There is no significant valvular disease 03/2021 Anesthesia Assessment and Plan Anesthesia History Personal History: No History of Anesthesia Complications Family History: No Family History of Anesthesia Complications Exercise Tolerance Exercise Tolerance: Metabolic Equivalents>4 Cardiac & Pulmonary Exam Cardiac Exam: Normal S1/S2 Heart Sounds Pulmonary Exam: Clear Bilateral Breath Sounds Implantable Cardiac Device Does patient have a Pacemaker or an ICD?: No Airway Exam Known Difficult Airway: No Mallampati Class: 2 Mouth Opening: Normal (> 3cm) Thyromental Distance: Less than 3 cm Neck Range of Motion: Full ROM Neck Circumference: Normal Teeth Condition: Normal Dentition ASA Classification ASA Score: ASA 2 Emergency Case?: No NPO Status NPO Status: NPO Clears >2 hours, Solids >8 hours Anesthesia Plan Resuscitation Status: Full Code Anesthesia Technique: General Anesthesia Airway Planned: Endotracheal Tube Pain Management: Surgeon and patient request nerve block Monitors Used: Standard Monitors Preoperative Comments:: 59 yo female for bilateral hernia repair. Sig PMHx: HTN (not on meds), GERD (omeprazole), depression, ADHD. Never smoker, occ EtOH. Does have dry eye for which she is followed by rheum. Previous Anes: - EGD/colo, prop, natural airway, no issues. - hyster, spinal (2 attempts)/GA, prop, glide 3 grade 1, easy mask with OPA.
[2024-05-31] MEDS: Celecoxib 200 MG CAP PO (09:40)
[2024-05-31] MEDS: Acetaminophen 500 MG TAB 1000 MG PO (09:40)
[2024-05-31] MEDS: Gabapentin 300 MG CAP 600 MG PO (09:40)
[2024-05-31] MEDS: Normal Saline Flush 10 ML SYR IV (10:09)
[2024-05-31] MEDS: ceFAZolin 2 GM/50 ML BAG IVPB (10:48)
[2024-05-31] MEDS: Bupivacaine 0.5% Pres-Free W/EPI 30 ML VIAL (11:17)
--- NOTE | 2024-05-31 11:19 | W.ANESNERVE ---
Nerve Block Single Injection Procedure Date and Time Date Performed: 05/31/24 Procedure Start: 11:00 Location Where Procedure Performed Procedure Location: Operating Room Procedure Stop: 11:09 Reason Performed: Postoperative Analgesia Requesting Provider: Khris Mix Timeout Performed Timeout Performed: Yes Monitoring Used ECG, Blood Pressure and SpO2 Sterility Sterility: Hand Hygiene, Surgical Cap, Surgical Mask, Sterile Gloves and Chlorhexidine Sedation Given During Procedure Sedation Given (Indicate Dose Given): No Sedation given Patient Mental Status Patient Mental Status: Performed under general anesthesia Nerve Block 1st Nerve Block: Laterality: Bilateral Block Type: TAP Bilateral Ultrasound Image Saved?: Yes Needle / Catheter Used: 80mm SonoPlex II Local Anesthetic Bolus (Indicate Dose Given): Injected in 3-5ml increments after negative blood aspiration, Half of Total block solution given into each side, Bupivacaine 0.25% Dose:: 20 mL and Exparel Dose:: 10 mL Additives (Indicate Dose Given): None Ultrasound: Sterile probe cover and gel used Nerve Stimulator: Not Used Paresthesia: None Procedure Tolerated: No Complications Procedure Outcome: Successful Performed By: Richard Kebede
--- NOTE | 2024-05-31 12:35 | W.ANESPOSTOP ---
Postoperative Evaluation Date, Time and Location Date Performed: 05/31/24 Time Performed: 12:35 Patient Location: PACU Vital Signs Most Recent Imported Vital Signs: Most Recent Vital Signs Temp Pulse Resp BP Pulse Ox 36.5 C 68 17 130/75 99 05/31/24 12:30 05/31/24 12:26 05/31/24 12:30 05/31/24 12:26 05/31/24 12:30 Pain Score Most Recent Pain Score: Most Recent Pain Score Pain Level 0 05/31/24 09:25 Assessment Mental Status: Awake (Alert & Oriented to Patient Baseline) Airway and Respiratory Function: Patent airway with normal (patient baseline) respiratory exam Cardiovascular Function: Hemodynamically Stable Hydration Status: Adequately Hydrated Nausea & Vomiting: No Nausea or Vomiting Pain: Pain is tolerable per patient Peripheral Nerve Block: Regional nerve block not resolved at time of post operative discharge
== END 2024-05-31 13:57 | disposition home or self-care (01) ==
LOC: SUR 09:20
PROVIDERS: PCP Nurse Practitioner Family; Visit Provider Surgery
PROC: (CPT 49505; principal; 2024-05-31 11:15)
DX: K40.20 Bilateral inguinal hernia, without obstruction or gangrene, not specified as recurrent (principal); M35.9 Systemic involvement of connective tissue, unspecified; F33.9 Major depressive disorder, recurrent, unspecified; F41.1 Generalized anxiety disorder; F90.9 Attention-deficit hyperactivity disorder, unspecified type; K58.9 Irritable bowel syndrome, unspecified; E78.5 Hyperlipidemia, unspecified; G89.18 Other acute postprocedural pain
CPT/HCPCS: 49505; 64488; C1781; C9290; J0665; J0690; J1100; J2003; J2250; J2405; J2704; J3010

== ENCOUNTER 2024-07-04 13:18 | Outpatient (CLI) | payer OTHER, SELFPAY ==
[2024-07-04 13:44] LABS: HCT 37.8 % (36.0-46.0); HGB 12.3 g/dL (11.2-15.7); MCH 29.1 pg (27.0-33.0); MCHC 32.5 % (32.0-36.0); MCV 89 fL (80-95); Platelet Count 244 10^3/uL (130-400); RBC 4.23 10^6/uL (3.93-5.22); RDW 11.8 % (11.7-14.6); RDW-SD 38.4 fL; WBC 4.89 10^3/uL (4.4-10.8)
[2024-07-04 14:39] LABS: ALT 23 U/L (14-59); AST 14 U/L (15-37); Alkaline Phosphatase 81 U/L (46-116); Anion Gap 6.7 mmol/L (3-11); BUN 15 mg/dL (7-18); CO2 30.3 mmol/L (21.0-32.0); Calcium 9.4 mg/dL (8.5-10.1); Calculated LDL 156 mg/dL (<100); Chloride 104 mmol/L (98-107); Cholesterol 254 mg/dL (<200); Glucose 76 mg/dL (74-106); HDL Cholesterol 78 mg/dL (40-60); Sodium 141 mmol/L (136-145); Total Protein 7.3 g/dL (6.4-8.2); Triglyceride 100 mg/dL (<150); Vitamin D 25 Total 38.8 ng/mL (30-100)
[2024-07-04 23:42] LABS: HBs Antibody, Quant >1000.0 mIU/mL (See Note); Hep B Surface Ab Positive (See Note); Hepatitis B Core Antibody Negative (Negative); Hepatitis B Surface Antigen Negative (Negative)
[2024-07-04 23:47] LABS: Hepatitis C Ab w Rflx HCV PCR Negative (Negative)
[2024-07-04 23:52] LABS: HIV-1/2 Ag & Ab Screen Negative (Negative)
== END 2024-07-04 13:19 | disposition home or self-care (01) ==
LOC: LBO 13:18
PROVIDERS: PCP Nurse Practitioner Family; Visit Provider Nurse Practitioner Family
DX: Z00.00 Encounter for general adult medical examination without abnormal findings (principal); Z11.59 Encounter for screening for other viral diseases; Z11.4 Encounter for screening for human immunodeficiency virus [HIV]
CPT/HCPCS: 36415; 80053; 80061; 82306; 85027; 86704; 86706; 86803; 87340; 87389